=== PATIENT | male | born 1930 | race Caucasian/White ===

== ENCOUNTER → 2016-08-14 | Outpatient (CLI) | payer BC ==
[~2016-08-14] VITALS: Ht 177.8 cm; Wt 116.1 kg
[~2016-08-14] MED LIST: ASPI81TA21 PO; CARV12.52 PO; DABI150C PO; ERGO500037 PO; FURO40TA3 PO; IRBE-37 PO; LEVO1TAB50 PO; METO-217 PO; METO1TAB66 PO; TAMS0.4C59 PO; TRAM-10 PO
[2016-08-14 10:53] VITALS: BP 103/64; PULSE 80; Ht 177.8 cm; Wt 116.1 kg
== END | disposition home or self-care (01) ==
LOC: C.NEUR 10:40
PROVIDERS: ATTEND Internal Medicine Pulmonary Disease
DX: G47.31 Primary central sleep apnea (principal); G47.00 Insomnia, unspecified; G47.33 Obstructive sleep apnea (adult) (pediatric)

== ENCOUNTER → 2017-01-12 | Outpatient (CLI) | payer BC ==
[~2017-01-12] VITALS: Ht 180.3 cm; Wt 114.4 kg
[~2017-01-12] MED LIST changes: +METO-452 PO; -METO1TAB66 PO
[2017-01-12 16:41] VITALS: BP 110/73; PULSE 94; Ht 180.3 cm; Wt 114.4 kg
== END | disposition home or self-care (01) ==
LOC: C.NEUR 15:21
PROVIDERS: ATTEND Internal Medicine Pulmonary Disease
DX: G47.33 Obstructive sleep apnea (adult) (pediatric) (principal); G47.00 Insomnia, unspecified; G47.31 Primary central sleep apnea

== ENCOUNTER → 2017-02-16 | Outpatient (CLI) | payer BC ==
[~2017-02-16] MED LIST changes: -METO-452 PO; +METO1TAB66 PO
[2017-02-16 11:29] LABS: ALT/SGPT 23 U/L (12-78); AST/SGOT 18 U/L (15-37); BLOOD UREA NITROGEN 23 mg/dl (7-18); BUN/CREATININE RATIO 16.1 (10-20); CALCIUM 9.1 mg/dl (8.5-10.1); CARBON DIOXIDE 25 mmol/L (21-32); CHLORIDE 108 mmol/L (98-107); GLUCOSE 90 mg/dl (70-99); POTASSIUM 4.6 mmol/L (3.5-5.1); SODIUM 140 mmol/L (136-145)
[2017-02-16 11:40] LABS: ALB/GLOB RATIO 1.1 (0.9-2); ALKALINE PHOSPHATASE 55 U/L (45-117); CHOLESTEROL 127 mg/dl (0-200); CHOLESTEROL/HDL RATIO 4.2; HDL CHOLESTEROL 30 mg/dl; LDL CHOLESTEROL CALCULATED 79 mg/dl; TRIGLYCERIDES 91 mg/dl (0-150); VERY LOW DENSITY LIPOPROT CALC 18 mg/dl
== END | disposition home or self-care (01) ==
LOC: C.LABFOXMH 09:26
PROVIDERS: ATTEND Internal Medicine
DX: E78.00 Pure hypercholesterolemia, unspecified (principal); E03.9 Hypothyroidism, unspecified

== ENCOUNTER → 2017-06-21 | Outpatient (CLI) | payer BC ==
[~2017-06-21] MED LIST changes: +METO-452 PO; -METO1TAB66 PO
== END | disposition home or self-care (01) ==
LOC: C.LABFOXMH 08:18
PROVIDERS: ATTEND Internal Medicine
DX: I50.9 Heart failure, unspecified (principal)

== ENCOUNTER → 2017-06-22 | Outpatient (CLI) | payer BC ==
[2017-06-22 09:38] LABS: ALT/SGPT 23 U/L (12-78); AST/SGOT 19 U/L (15-37); BLOOD UREA NITROGEN 19 mg/dl (7-18); BUN/CREATININE RATIO 14.4 (10-20); CALCIUM 8.9 mg/dl (8.5-10.1); CARBON DIOXIDE 26 mmol/L (21-32); CHLORIDE 106 mmol/L (98-107); CREATININE 1.35 mg/dl (0.60-1.40); GLUCOSE 95 mg/dl (70-99); POTASSIUM 4.4 mmol/L (3.5-5.1); SODIUM 139 mmol/L (136-145)
[2017-06-22 09:40] LABS: ALB/GLOB RATIO 1.1 (0.9-2); ALKALINE PHOSPHATASE 55 U/L (45-117)
== END | disposition home or self-care (01) ==
LOC: C.LABFOXMH 09:04
PROVIDERS: ATTEND Internal Medicine Hospice and Palliative Medicine
DX: I50.9 Heart failure, unspecified (principal)

== ENCOUNTER → 2018-03-07 | Outpatient (CLI) | payer BC ==
[~2018-03-07] MED LIST changes: +ASPI-319 PO; -ASPI81TA21 PO
[2018-03-07 10:29] LABS: ALBUMIN 3.3 gm/dl (3.4-5.0); ALKALINE PHOSPHATASE 56 U/L (45-117); ALT/SGPT 23 U/L (12-78); AST/SGOT 20 U/L (15-37); BLOOD UREA NITROGEN 20 mg/dl (7-18); CALCIUM 8.5 mg/dl (8.5-10.1); CARBON DIOXIDE 25 mmol/L (21-32); CHOLESTEROL 104 mg/dl (0-200); CREATININE 1.28 mg/dl (0.60-1.40); GLUCOSE 96 mg/dl (70-99); LDL CHOLESTEROL CALCULATED 59 mg/dl; POTASSIUM 4.6 mmol/L (3.5-5.1); SODIUM 139 mmol/L (136-145); TOTAL PROTEIN 6.5 gm/dl (6.4-8.2)
== END ==
LOC: C.LABFOXMH 09:49
PROVIDERS: ATTEND Internal Medicine
DX: E78.00 Pure hypercholesterolemia, unspecified (principal); E03.9 Hypothyroidism, unspecified

== ENCOUNTER 2018-08-25 20:02 | Inpatient (IN) ==
[2018-08-25] MEDS ORDERED: SODIUM CHLORIDE 0.9% 500 ML IV SCH (20:45)
[2018-08-25 20:52] LABS: Hematocrit (blood only) 40.3 % (42-52); Hemoglobin 13.4 g/dL (14.0-18.0); Mean Corpuscular Hgb Conc 33.3 g/dL (32-36); Mean Platelet Volume 9.9 fL (7.4-10.4); Platelet Count 133 K/uL (130-400); RDW Coefficient of Variation 14.5 % (11.5-14.5); RDW Standard Deviation 48.3 fL (36.4-46.3); Red Blood Count 4.43 M/uL (4.7-6.1); White Blood Count 9.34 K/uL (4.8-10.8)
[2018-08-25 20:59] LABS: Alanine Aminotransferase 18 U/L (12-78); Albumin Level 3.4 gm/dl (3.4-5.0); Aspartate Aminotransferase 20 U/L (15-37); BUN Creatinine Ratio 16.2 (10-20); Blood Urea Nitrogen 21 mg/dl (7-18); Calcium 8.4 mg/dl (8.5-10.1); Carbon Dioxide 22 mmol/L (21-32); Chloride 100 mmol/L (98-107); Creatinine Clr Calc Pharmacy 54.8 ml/min; Est GFR (African American) 58.9; Est GFR (Non-African American) 50.8; Glucose 117 mg/dl (70-99); Potassium 4.3 mmol/L (3.5-5.1); Sodium 130 mmol/L (136-145)
[2018-08-25 21:01] LABS: INR 1.2 (0.9-1.1); Partial Thromboplastin Ratio 1.4; Partial Thromboplastin Time 35.5 Seconds (21.0-31.0); Prothrombin Time 12.2 Seconds (9.0-12.0)
[2018-08-25 21:10] LABS: Albumin Globulin Ratio 0.9 (0.9-2); Alkaline Phosphatase 70 U/L (45-117); Bilirubin,Total 0.9 mg/dl (0.2-1); Globulin 3.7 gm/dl (2.5-4.0); T4 Free Thyroxine 1.34 ng/dl (0.8-1.6); Total Protein 7.1 gm/dl (6.4-8.2); Troponin I < 0.015 ng/ml (0-0.045)
--- NOTE | 2018-08-25 21:13 | Emergency Department Note ---
Entered by Radha Morales acting as a scribe for Jorge Jade MD History of Present Illness General Chief complaint: Weakness Time Seen by Provider: 08/25/18 20:31 Source: patient Mode of arrival: EMS Limitations: no limitations History of Present Illness Provider complaint: Weakness Onset (ago): hour(s) ("couple hours ago beginning today") Location: lower extremity, left and right Radiation: non-radiation Severity: moderate Pain Consistency: + intermittent Maximum Pain Intensity: 0 Exacerbated By: + movement Associated symptoms: + other (dehydration, sweats) Patient is an 88 year old male presenting to the ED via EMS with weakness beginning today. Patient states he began to feel dizzy and lightheaded after going on a walk to visit friends within [facility]. He notes he noticed weakness in both legs and had trouble standing and holding himself up. Nurses note shares that patient did have two falls after onset began--no LOC or injury. Patient shares he did have associated sweats during his weakness episodes. Patient denies any CP, SOB, fever, nausea, vomiting, diarrhea, pain with urination, abd pain or any other complaints. He shares he did have a recent cough, and did need to use a CPAP machine. Patient notes he has a history of cataracts to which one pupil is larger than the other, and a hx of Afib. Home Medications Home Medications Medication Instructions Recorded Confirmed Type irbesartan 150 mg PO DAILY 04/29/18 08/25/18 History levothyroxine [Synthroid] 75 mcg PO DAILY 04/29/18 08/25/18 History metoprolol succinate [Toprol XL] 25 mg PO DAILY 04/29/18 08/25/18 History rivaroxaban [Xarelto] 15 mg PO DAILY 04/29/18 08/25/18 History rosuvastatin 10 mg PO DAILY 04/29/18 08/25/18 History tamsulosin 0.4 mg PO DAILY 04/29/18 08/25/18 History zolpidem 10 mg PO HS 04/29/18 08/25/18 History aspirin 81 mg PO DAILY 08/25/18 08/25/18 History Allergies Allergy/AdvReac Type Severity Reaction Status Date / Time cashew nut Allergy Unknown Verified 08/25/18 20:52 Past Med/Surg History Medical History 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, initial encounter Obstructive sleep apnea Cardiomyopathy Anticoagulant long-term use Chronic a-fib CAD (coronary artery disease) Hypertension (Chronic) Hypercholesterolemia (Chronic) Heart disease (Chronic) Diverticulitis (Chronic) Surgical History History of arthroplasty of left knee History of arthroplasty of right knee History of left hip replacement History of right hip replacement Social History Current Living Situation: [facility] current occupational status: retired Feels Safe at Home: Yes Smoking Status: Never smoker Preferred Language: [place]agu[place] Review of Systems See HPI for pertinent positives & negatives. and A total of 10 systems reviewed and were otherwise negative Physical Exam Vital Signs Vital Signs - 24 hr 08/25/18 20:19 08/25/18 20:25 08/25/18 21:06 Temperature 36.8 C Temperature Source Oral Sepsis Recent Fever Within 48 Hours No Sepsis Action Taken by Nursing No Action Required Pulse Rate 108 H Pulse Rate [Right Finger] 104 H Pulse Rhythm Irregular Pulse Rhythm [Right Finger] Irregular Pulse Strength Normal Pulse Strength [Right Finger] Normal Respiratory Rate 22 20 Respiratory Effort / Characteristics Spontaneous Labored Non-Labored Spontaneous Respiratory Depth Normal Normal Respiratory Pattern Regular Regular Blood Pressure 112/62 Blood Pressure [Right Arm] 107/55 L Blood Pressure Mean 78 Blood Pressure Mean [Right Arm] 72 Pulse Oximetry 95 95 97 Oxygen Delivery Method Room Air Nasal Cannula Nasal Cannula Oxygen Flow Rate 2 2 08/25/18 21:59 Temperature Temperature Source Sepsis Recent Fever Within 48 Hours Sepsis Action Taken by Nursing Pulse Rate Pulse Rate [Right Finger] 99 H Pulse Rhythm Pulse Rhythm [Right Finger] Irregular Pulse Strength Pulse Strength [Right Finger] Normal Respiratory Rate 20 Respiratory Effort / Characteristics Non-Labored Spontaneous Respiratory Depth Normal Respiratory Pattern Regular Blood Pressure Blood Pressure [Right Arm] 132/82 Blood Pressure Mean Blood Pressure Mean [Right Arm] 98 Pulse Oximetry 98 Oxygen Delivery Method Nasal Cannula Oxygen Flow Rate 2 GENERAL: Patient is in no acute distress. HEENT: No acute trauma, normocephalic atraumatic, mucous membranes moist, no nasal congestion, no scleral icterus. Right pupil larger than left (apparently chronic) NECK: No stridor, no adenopathy, no meningismus, trachea is midline. LUNGS: Clear to auscultation bilaterally, no wheeze, no rhonchi, breath sounds equal. HEART: tachycardic, irregular rhythm, no obvious murmurs. ABDOMEN: Soft, nontender, bowel sounds positive, no hernias, no peritonitis. EXTREMITIES: No cyanosis, full range of motion of all the joints without pain or difficulty, no signs for acute trauma. Mild bilateral pedal edema NEUROLOGIC: Oriented x 3, no acute motor or sensory deficits, no focal weakness. No cerebellar dysfunction, no pronator drift, no speech slur. SKIN: No rash, no jaundice, mild diaphoresis. Course 2031: Past medical records reviewed. The patient was evaluated in room C10, and a complete history and physical examination were performed. 2151: Updated by nurse that patients ambulation test went poorly. Plan for admission. 2203: Discussed case with Dr. Celestin, who accepts patient for admission. Administered Medications Metoprolol Tartrate (Lopressor) 2.5 mg IV Q5M PRN PRN Reason: Tachycardia Stop: 09/24/18 21:51 Last Admin: 08/25/18 21:56 Dose: 2.5 mg Discontinued Medications Sodium Chloride (Nss) 500 mls @ 999 mls/hr IV .Q31M JONNY Stop: 08/25/18 21:15 Last Infusion: 08/25/18 21:38 Dose: 0 mls/hr Admin: 08/25/18 21:05 Dose: 999 mls/hr Sodium Chloride (Nss) 500 mls @ 999 mls/hr IV .Q31M STA Stop: 08/25/18 21:45 Last Infusion: 08/25/18 21:58 Dose: 0 mls/hr Admin: 08/25/18 21:27 Dose: 999 mls/hr Medical Decision Making Differential Diagnosis Differential Diagnosis includes:dehydration, sepsis, electrolyte imbalance, anemia, dysrhythmia, rapid AFIB, UT, UTI, pneumonia, stroke Medical Records Attestation: I reviewed the patient's medical records. Home Medications Current Medication List: was personally reviewed by me Laboratory Data Attestation: I reviewed the patient's lab results. Result diagrams: 08/25/18 20:15 08/25/18 20:15 Lab Results 08/25/18 08/25/18 08/25/18 Range/Units 20:15 20:15 20:15 WBC 9.34 (4.8-10.8) K/uL RBC 4.43 L (4.7-6.1) M/uL Hgb 13.4 L (14.0-18.0) g/dL Hct 40.3 L (42-52) % MCV 91.0 (80-100) fL MCH 30.2 (25-34) pg MCHC 33.3 (32-36) g/dL RDW Std Deviation 48.3 H (36.4-46.3) fL RDW Coeff of Kasie 14.5 (11.5-14.5) % Plt Count 133 (130-400) K/uL MPV 9.9 (7.4-10.4) fL Immature Gran % (Auto) 0.2 % Neut % (Auto) 80.9 % Lymph % (Auto) 8.7 % [place] % (Auto) 9.0 % Eos % (Auto) 1.0 % Baso % (Auto) 0.2 % Immature Gran # (Auto) 0.02 (0.00-0.02) K/uL Neut # (Auto) 7.56 H (1.4-6.5) K/uL Lymph # (Auto) 0.81 L (1.2-3.4) K/uL [place] # (Auto) 0.84 H (0.11-0.59) K/uL Eos # (Auto) 0.09 (0-0.5) K/uL Baso # (Auto) 0.02 (0-0.2) K/uL PT 12.2 H (9.0-12.0) Seconds INR 1.2 H (0.9-1.1) APTT 35.5 H (21.0-31.0) Seconds PTT Ratio 1.4 Sodium 130 L (136-145) mmol/L Potassium 4.3 (3.5-5.1) mmol/L Chloride 100 (98-107) mmol/L Carbon Dioxide 22 (21-32) mmol/L Anion Gap 9.0 (3-11) BUN 21 H (7-18) mg/dl Creatinine 1.27 (0.6-1.4) mg/dl Est Cr Clr Drug Dosing 54.8 ml/min Est GFR ( Amer) 58.9 Est GFR (Non-Af Amer) 50.8 BUN/Creatinine Ratio 16.2 (10-20) Glucose 117 H (70-99) mg/dl Lactate (0.4-2.0) mmol/L Calcium 8.4 L (8.5-10.1) mg/dl Magnesium 2.0 (1.8-2.4) mg/dl Total Bilirubin 0.9 (0.2-1) mg/dl AST 20 (15-37) U/L ALT 18 (12-78) U/L Alkaline Phosphatase 70 (45-117) U/L Troponin I < 0.015 (0-0.045) ng/ml Total Protein 7.1 (6.4-8.2) gm/dl Albumin 3.4 (3.4-5.0) gm/dl Globulin 3.7 (2.5-4.0) gm/dl Albumin/Globulin Ratio 0.9 (0.9-2) TSH 2.530 (0.300-4.500) uIu/ml Free T4 1.34 (0.8-1.6) ng/dl Influenza Type A Ag (Neg) Influenza Type B Ag (Neg) 08/25/18 08/25/18 Range/Units 21:02 21:03 WBC (4.8-10.8) K/uL RBC (4.7-6.1) M/uL Hgb (14.0-18.0) g/dL Hct (42-52) % MCV (80-100) fL MCH (25-34) pg MCHC (32-36) g/dL RDW Std Deviation (36.4-46.3) fL RDW Coeff of Kasie (11.5-14.5) % Plt Count (130-400) K/uL MPV (7.4-10.4) fL Immature Gran % (Auto) % Neut % (Auto) % Lymph % (Auto) % [place] % (Auto) % Eos % (Auto) % Baso % (Auto) % Immature Gran # (Auto) (0.00-0.02) K/uL Neut # (Auto) (1.4-6.5) K/uL Lymph # (Auto) (1.2-3.4) K/uL [place] # (Auto) (0.11-0.59) K/uL Eos # (Auto) (0-0.5) K/uL Baso # (Auto) (0-0.2) K/uL PT (9.0-12.0) Seconds INR (0.9-1.1) APTT (21.0-31.0) Seconds PTT Ratio Sodium (136-145) mmol/L Potassium (3.5-5.1) mmol/L Chloride (98-107) mmol/L Carbon Dioxide (21-32) mmol/L Anion Gap (3-11) BUN (7-18) mg/dl Creatinine (0.6-1.4) mg/dl Est Cr Clr Drug Dosing ml/min Est GFR ( Amer) Est GFR (Non-Af Amer) BUN/Creatinine Ratio (10-20) Glucose (70-99) mg/dl Lactate 1.2 (0.4-2.0) mmol/L Calcium (8.5-10.1) mg/dl Magnesium (1.8-2.4) mg/dl Total Bilirubin (0.2-1) mg/dl AST (15-37) U/L ALT (12-78) U/L Alkaline Phosphatase (45-117) U/L Troponin I (0-0.045) ng/ml Total Protein (6.4-8.2) gm/dl Albumin (3.4-5.0) gm/dl Globulin (2.5-4.0) gm/dl Albumin/Globulin Ratio (0.9-2) TSH (0.300-4.500) uIu/ml Free T4 (0.8-1.6) ng/dl Influenza Type A Ag Neg for Influ A (Neg) Influenza Type B Ag Neg for Influ B (Neg) Imaging Data Radiologist's Impression: SINGLE VIEW CHEST CLINICAL HISTORY: Generalized weakness. Syncope. FINDINGS: An AP, portable, upright chest radiograph is compared to study dated 04/29/2018. The examination is degraded by portable technique and patient rotation. The heart is enlarged and there is atherosclerotic calcification of the thoracic aorta. There is prominence of the central pulmonary vessels. There are bibasilar airspace opacities. No large pleural effusion or pneumothorax is seen. The skeletal structures are osteopenic. The bony thorax is grossly intact. Degenerative change is present in the shoulders and thoracic spine. IMPRESSION: 1. Cardiomegaly with prominence of the central pulmonary vessels. Correlate clinically for evidence of mild congestive failure. 2. There are bibasilar airspace opacities which likely represent atelectasis. Correlate clinically for evidence of a superimposed infectious/inflammatory pneumonitis. Electronically signed by: Jorge Nelson M.D. 08/25/2018 9:28 PM ECG Data Attestation: I personally reviewed and interpreted this ECG as follows: Indication: weakness Rate (beats per minute): 110 Rhythm: atrial fibrillation Findings: + other (nonspecific ST change), + PVC and + RBBB; no ST elevation Comparison ECG Date: from (04/29/18) Change: no significant change Blood Pressure Blood Pressure Findings: Normal blood pressure MDM Narrative There is no leukocytosis or worrisome anemia. No concerning coagulopathy. Sodium is somewhat low at 130. No kidney failure. Lactic acid level is not elevated making sepsis less likely. EKG shows a rapid A. fib with a right bundle branch block, no acute ischemia. Cardiac enzyme testing x1 is not consistent with acute cardiac injury. There was no hepatitis. The patient appeared to be in a euthyroid state. Influenza testing was negative. Chest film showed cardiomegaly, no obvious pneumonia, no concerning CHF. Urinalysis result is pending. Blood cultures are pending. The patient received IV saline, 2/500 cc boluses were given. He received a small dose of IV Lopressor, 2.5 mg. The patient is still mildly tachycardic. He did attempt to stand and his legs felt weak. They were stronger than earlier but still weak. I do think the patient requires a hospital stay. He presents in a rapid A. fib. He has leg weakness and had 2 near syncopal spells where he could not stand. He was sweaty upon arrival. Further workup in the hospital is warranted. Further cardiac workup is warranted. His sodium needs replaced. Of note, the patient did not suffer any trauma with his episodes, he did not strike his head. He denies any chest pain. I did speak to the patient and case management. The on-call hospitalist was consulted. Impression & Plan Rapid atrial fibrillation, Dehydration, Hyponatremia, Weakness, Near syncope Discharge Plan Visit Data Chief Complaint: Weakness ED Provider: Jorge Jade Discharge Problem: Rapid atrial fibrillation, Dehydration, Hyponatremia, Weakness, Near syncope Forms Stand Alone Forms: My [facility] Prescriptions Prescriptions: No Action levothyroxine [Synthroid] 75 mcg tablet 75 mcg PO DAILY RF: 0 tamsulosin 0.4 mg capsule 0.4 mg PO DAILY RF: 0 metoprolol succinate [Toprol XL] 25 mg tablet extended release 24 hr 25 mg PO DAILY RF: 0 irbesartan 150 mg tablet 150 mg PO DAILY RF: 0 rosuvastatin 10 mg tablet 10 mg PO DAILY RF: 0 zolpidem 10 mg tablet 10 mg PO HS RF: 0 rivaroxaban [Xarelto] 15 mg tablet 15 mg PO DAILY RF: 0 aspirin 81 mg Tablet,Delayed Release (Dr/Ec) 81 mg PO DAILY RF: 0 The scribe's documentation has been prepared under my direction and personally reviewed by me in its entirety. I confirm that the note above accurately reflects all work, treatment, procedures, and medical decision making performed by me.
[2018-08-25] MEDS ORDERED: SODIUM CHLORIDE 0.9% 500 ML IV STA (21:15)
[2018-08-25 21:24] LABS: Basophils # (auto) 0.02 K/uL (0-0.2); Basophils % (auto) 0.2 %; Eosinophils # (auto) 0.09 K/uL (0-0.5); Immature Granulocytes # (auto) 0.02 K/uL (0.00-0.02); Immature Granulocytes % (auto) 0.2 %; Lymphocytes # (auto) 0.81 K/uL (1.2-3.4); Lymphocytes % (auto) 8.7 %; Monocytes # (auto) 0.84 K/uL (0.11-0.59); Neutrophils # (auto) 7.56 K/uL (1.4-6.5); Neutrophils % (auto) 80.9 %
--- NOTE | 2018-08-25 21:30 | XRay Report ---
SINGLE VIEW CHEST CLINICAL HISTORY: Generalized weakness. Syncope. FINDINGS: An AP, portable, upright chest radiograph is compared to study dated 04/29/2018. The examin ation is degraded by portable technique and patient rotation. The heart is enlarged and there is ath erosclerotic calcification of the thoracic aorta. There is prominence of the central pulmonary vessel s. There are bibasilar airspace opacities. No large pleural effusion or pneumothorax is seen. The ske letal structures are osteopenic. The bony thorax is grossly intact. Degenerative change is present in the shoulders and thoracic spine. IMPRESSION: 1. Cardiomegaly with prominence of the central pulmonary vessels. Correlate clinically for evidence o f mild congestive failure. 2. There are bibasilar airspace opacities which likely represent atelectasis. Correlate clinically fo r evidence of a superimposed infectious/inflammatory pneumonitis. Electronically signed by: Jorge Nelson M.D. 08/25/2018 9:28 PM
[2018-08-25] MEDS ORDERED: METOPROLOL TARTRATE 1 MG/ML VIAL IV PRN (21:52)
--- NOTE | 2018-08-26 00:14 | History & Physical Report ---
Date of Service August 26, 2018 Assessment & Plan (1) Rapid atrial fibrillation: 88-year-old male who presents to the emergency room after feeling weak in his legs and found to have A. fib with RVR. Patient has known A. fib and is on Xarelto. He has not skipped any doses of his medications. He states that for several days he has not felt well, started a new CPAP machine earlier this week and had resultant sinus congestion with drainage. He was seen by the PCP at [facility] for this, was not started on any medications or antibiotics. Says he began to feel increasingly more weak in his legs and does take tramadol as needed due to lower back lumbar stenosis and chronic pain. He admits to low p.o. fluid intake. Of note, he does deny fevers, chills, chest pain, dyspnea, abdominal pain, diarrhea or constipation, bloody stools or urine. Endorses trace leg edema which is stable for him. 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 Denies T/E/D. ED course: Up to 120s per report. Administered liter boluses, 2.5 mg Lopressor IV with good effect. Labs remarkable for hemoglobin 13.4, INR 1.2, sodium 130, potassium 4.3, BUN/creatinine 21/1.27 which is his baseline. Glucose 117. Lactate 1.2. Troponin normal. No transaminitis. Thyroid function normal. Chest x-ray unremarkable. KUB pending. 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 Rodriguez -In setting of nonspecific viral upper respiratory symptoms, poor p.o. fluids and hyponatremia consistent with dehydration -RVR responsive to beta-kristian and fluids -normally takes 40mg PO Lasix - CXR shows very mild congestion. Plan: -Monitor on med telemetry -Received 2 L boluses in the ED, will NOT continue maintenance fluids given CM. Restart lasix in AM. I/Os, weights. -Lopressor 5 mg IV every 4 as needed for tachycardia -if clinically not improving, could consider repeat echo Anemia, normocytic -Mild -Denies signs and symptoms of bleeding, on Xarelto -FOBT negative 08/26/18 here -Recommend recheck H&H 1 week from discharge Chronic back pain, spinal stenosis and weakness in the legs -Recommend continue his physical therapy at [facility] for strengthening -Continue home tramadol 50 mg as needed every 12 hours -PT eval and treat FEN/GI: Heart healthy diet, maintenance fluids normal saline at 125 mL/hr DVT ppx: On Xarelto CODE STATUS: Full code DISPO: Med telemetry Other ongoing medical problems: SAULO - CPAP here Hypertension-Continue home irbesartan 150 mg daily, Toprol 25 mg daily Hyperlipidemia-continue home Crestor 10 mg daily BPH-continue home Flomax 0.4 mg daily Insomnia-continue home Ambien 10 mg p.o. at bedtime Radha Birch MD Senior Property Manager (2) Dehydration: (3) Hyponatremia: (4) Weakness: (5) Near syncope: (6) Obstructive sleep apnea: (7) Anticoagulant long-term use: (8) Chronic a-fib: (9) CAD (coronary artery disease): (10) Hypertension: (11) Hypercholesterolemia: History of Present Illness Primary Care Provider: [facility] 88-year-old male who presents to the emergency room after feeling weak in his legs and found to have A. fib with RVR. Patient has known A. fib and is on Xarelto. He has not skipped any doses of his medications. He states that for several days he has not felt well, started a new CPAP machine earlier this week and had resultant sinus congestion with drainage. He was seen by the PCP at [facility] for this, was not started on any medications or antibiotics. Says he began to feel increasingly more weak in his legs and does take tramadol as needed due to lower back lumbar stenosis and chronic pain. He admits to low p.o. fluid intake. Of note, he does deny chest pain, dyspnea, abdominal pain, diarrhea or constipation, bloody stools or urine. Endorses trace leg edema which is stable for him. 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 Denies T/E/D. ED course: Admitted Administered liter boluses, 2.5 mg Lopressor IV with good effect. Labs remarkable for hemoglobin 13.4, INR 1.2, sodium 130, potassium 4.3 , BUN/creatinine 21/1.27 which is his baseline. Glucose 117. Lactate 1.2. Troponin normal. No transaminitis. Thyroid function normal. Chest x-ray unremarkable. KUB pending. Allergies Allergy/AdvReac Type Severity Reaction Status Date / Time cashew nut Allergy Unknown Verified 08/25/18 20:52 Home Medications Home Medications Medication Instructions Recorded Confirmed Type irbesartan 150 mg PO DAILY 04/29/18 08/25/18 History levothyroxine 75 mcg PO DAILY 04/29/18 08/25/18 History metoprolol succinate 25 mg PO DAILY 04/29/18 08/25/18 History rivaroxaban 15 mg PO DAILY 04/29/18 08/25/18 History rosuvastatin 10 mg PO DAILY 04/29/18 08/25/18 History tamsulosin 0.4 mg PO DAILY 04/29/18 08/25/18 History zolpidem 10 mg PO HS 04/29/18 08/25/18 History aspirin 81 mg PO DAILY 08/25/18 08/25/18 History Past Med/Surg History Medical History 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, initial encounter Obstructive sleep apnea Cardiomyopathy Anticoagulant long-term use Chronic a-fib CAD (coronary artery disease) Hypertension (Chronic) Hypercholesterolemia (Chronic) Heart disease (Chronic) Diverticulitis (Chronic) Surgical History History of arthroplasty of left knee History of arthroplasty of right knee History of left hip replacement History of right hip replacement Social History marital status: Current Living Situation: Spouse current occupational status: retired Other Information That Helps Us Care for You: No Feels Safe at Home: Yes Safety Concerns: Feels Safe At This Time Smoking Status: Never smoker Hx Alcohol Use: No Hx Substance Use: No Beliefs That Will Affect Care: None Preferred Language: Uzbek Physical Exam 2 Vital Signs (Past 24 Hours): Last Vital Signs Temp 36.8 C 08/25/18 20:19 Pulse 99 H 08/25/18 21:59 Resp 20 08/25/18 21:59 BP 132/82 08/25/18 21:59 Pulse Ox 98 08/25/18 21:59 Physical Exam: Vitals noted as above and within normal limits GENERAL: Awake, alert to person, place, and time, nontoxic-appearing, in no distress HENT: Normocephalic, atraumatic. Nasal cannula in place. Mucus membranes appear dry. EYES: Normal conjunctiva. Sclera non-icteric. EOMI. NECK: Supple. Full range of motion. No JVD RESPIRATORY: Clear to auscultation. Normal work of breathing. CARDIAC: irregularly irregular. Rate 105. Extremities warm and well perfused, 2+ radial pulses bilaterally; 2+ posterior tibialis pulses bilaterally. ABDOMEN: Soft, slightly distended. No tenderness to palpation in all four quadrants. No rebound or guarding. No masses. Bowel sounds are normal. LOWER EXTREMITIES: Inspection of calves reveal equal size bilaterally. They are non-tender. Trace edema. No discoloration. NEURO: No focal gross focal motor deficits noted. Sensation in tact. CN II-XII grossly in tact. SKIN: Rash not present. No jaundice noted. Significant lesions not present. PSYCH: Appropriate mood and affect. Cooperative. Exam as done by Radha Birch MD, Senior Property Manager. Results & Data Laboratory Results 08/26/18 08/25/18 08/25/18 Range/Units 00:30 21:03 21:02 WBC (4.8-10.8) K/uL RBC (4.7-6.1) M/uL Hgb (14.0-18.0) g/dL Hct (42-52) % MCV (80-100) fL MCH (25-34) pg MCHC (32-36) g/dL RDW Std Deviation (36.4-46.3) fL RDW Coeff of Kasie (11.5-14.5) % Plt Count (130-400) K/uL MPV (7.4-10.4) fL Immature Gran % (Auto) % Neut % (Auto) % Lymph % (Auto) % [place] % (Auto) % Eos % (Auto) % Baso % (Auto) % Immature Gran # (Auto) (0.00-0.02) K/uL Neut # (Auto) (1.4-6.5) K/uL Lymph # (Auto) (1.2-3.4) K/uL [place] # (Auto) (0.11-0.59) K/uL Eos # (Auto) (0-0.5) K/uL Baso # (Auto) (0-0.2) K/uL PT (9.0-12.0) Seconds INR (0.9-1.1) APTT (21.0-31.0) Seconds PTT Ratio Sodium (136-145) mmol/L Potassium (3.5-5.1) mmol/L Chloride (98-107) mmol/L Carbon Dioxide (21-32) mmol/L Anion Gap (3-11) BUN (7-18) mg/dl Creatinine (0.6-1.4) mg/dl Est Cr Clr Drug Dosing ml/min Est GFR ( Amer) Est GFR (Non-Af Amer) BUN/Creatinine Ratio (10-20) Glucose (70-99) mg/dl Lactate 1.2 (0.4-2.0) mmol/L Calcium (8.5-10.1) mg/dl Magnesium (1.8-2.4) mg/dl Total Bilirubin (0.2-1) mg/dl AST (15-37) U/L ALT (12-78) U/L Alkaline Phosphatase (45-117) U/L Troponin I (0-0.045) ng/ml Total Protein (6.4-8.2) gm/dl Albumin (3.4-5.0) gm/dl Globulin (2.5-4.0) gm/dl Albumin/Globulin Ratio (0.9-2) TSH (0.300-4.500) uIu/ml Free T4 (0.8-1.6) ng/dl Urine Color Yellow Urine Appearance Clear (Clear) Urine pH 5.0 (4.5-7.5) Ur Specific [place] 1.018 (1.000-1.030) Urine Protein Negative (Negative) Urine Glucose (UA) Negative (Negative) Urine Ketones Negative (Negative) Urine Blood Negative (Negative) Urine Nitrite Negative (Negative) Urine Bilirubin Negative (Negative) Urine Urobilinogen Negative (Negative) Ur Leukocyte Esterase Negative (Negative) Influenza Type A Ag Neg for Influ A (Neg) Influenza Type B Ag Neg for Influ B (Neg) 08/25/18 08/25/18 08/25/18 Range/Units 20:15 20:15 20:15 WBC 9.34 (4.8-10.8) K/uL RBC 4.43 L (4.7-6.1) M/uL Hgb 13.4 L (14.0-18.0) g/dL Hct 40.3 L (42-52) % MCV 91.0 (80-100) fL MCH 30.2 (25-34) pg MCHC 33.3 (32-36) g/dL RDW Std Deviation 48.3 H (36.4-46.3) fL RDW Coeff of Kasie 14.5 (11.5-14.5) % Plt Count 133 (130-400) K/uL MPV 9.9 (7.4-10.4) fL Immature Gran % (Auto) 0.2 % Neut % (Auto) 80.9 % Lymph % (Auto) 8.7 % [place] % (Auto) 9.0 % Eos % (Auto) 1.0 % Baso % (Auto) 0.2 % Immature Gran # (Auto) 0.02 (0.00-0.02) K/uL Neut # (Auto) 7.56 H (1.4-6.5) K/uL Lymph # (Auto) 0.81 L (1.2-3.4) K/uL [place] # (Auto) 0.84 H (0.11-0.59) K/uL Eos # (Auto) 0.09 (0-0.5) K/uL Baso # (Auto) 0.02 (0-0.2) K/uL PT 12.2 H (9.0-12.0) Seconds INR 1.2 H (0.9-1.1) APTT 35.5 H (21.0-31.0) Seconds PTT Ratio 1.4 Sodium 130 L (136-145) mmol/L Potassium 4.3 (3.5-5.1) mmol/L Chloride 100 (98-107) mmol/L Carbon Dioxide 22 (21-32) mmol/L Anion Gap 9.0 (3-11) BUN 21 H (7-18) mg/dl Creatinine 1.27 (0.6-1.4) mg/dl Est Cr Clr Drug Dosing 54.8 ml/min Est GFR ( Amer) 58.9 Est GFR (Non-Af Amer) 50.8 BUN/Creatinine Ratio 16.2 (10-20) Glucose 117 H (70-99) mg/dl Lactate (0.4-2.0) mmol/L Calcium 8.4 L (8.5-10.1) mg/dl Magnesium 2.0 (1.8-2.4) mg/dl Total Bilirubin 0.9 (0.2-1) mg/dl AST 20 (15-37) U/L ALT 18 (12-78) U/L Alkaline Phosphatase 70 (45-117) U/L Troponin I < 0.015 (0-0.045) ng/ml Total Protein 7.1 (6.4-8.2) gm/dl Albumin 3.4 (3.4-5.0) gm/dl Globulin 3.7 (2.5-4.0) gm/dl Albumin/Globulin Ratio 0.9 (0.9-2) TSH 2.530 (0.300-4.500) uIu/ml Free T4 1.34 (0.8-1.6) ng/dl Urine Color Urine Appearance (Clear) Urine pH (4.5-7.5) Ur Specific [place] (1.000-1.030) Urine Protein (Negative) Urine Glucose (UA) (Negative) Urine Ketones (Negative) Urine Blood (Negative) Urine Nitrite (Negative) Urine Bilirubin (Negative) Urine Urobilinogen (Negative) Ur Leukocyte Esterase (Negative) Influenza Type A Ag (Neg) Influenza Type B Ag (Neg) Supervising Physician Co-Signing Physician Notes Attending addendum: I have physically seen this patient, have supervised the medical residents activities, and agree with the H&P unless as otherwise noted. Assessment and Plan: Atrial fibrillation RVR/dehydration/generalized weakness-- Admit to telemetry. Lopressor 5 mg IV q4h PRN HR > 110 s/p 2l in the ED. No further hydration tonight. Continue Xarelto, Toprol 25 mg daily and irbesartan. Condition likely brought on by underlying viral process. Treat symptomatically. Remainde of orders and notations as noted. Resident Activity Tracking Resident Involvement: Resident Care Provided Care Provided: [facility]
[2018-08-26 00:48] LABS: Appearance Urine Clear (Clear); Bilirubin Urine Negative (Negative); Color Urine Yellow; Glucose Urine UA Negative (Negative); Ketones Urine Negative (Negative); Leukocyte Esterase Urine Negative (Negative); Nitrite Urine Negative (Negative); Protein Urine Negative (Negative); Specific Gravity Urine 1.018 (1.000-1.030); Urobilinogen Urine Negative (Negative)
[2018-08-26] MEDS ORDERED: TRAMADOL HCL 50 MG TABLET PO PRN (01:48)
[2018-08-26] MEDS ORDERED: ALUMINUM/MAGNESIUM SUSP 30 ML UDC PO PRN (01:48)
[2018-08-26] MEDS ORDERED: SODIUM CHLORIDE 0.9% 1000ML 1,000 ML IV SCH (01:48)
[2018-08-26] MEDS ORDERED: METOPROLOL TARTRATE 1 MG/ML VIAL IV PRN (01:48)
[2018-08-26] MEDS ORDERED: ACETAMINOPHEN 325 MG TAB PO PRN (01:48)
[2018-08-26] MEDS ORDERED: POLYETHYLENE (MIRALAX) 17 GM PACK PO PRN (01:48)
[2018-08-26] MEDS ORDERED: MAGNESIUM HYDROXIDE SUSP 30 ML UDC PO PRN (01:48)
[2018-08-26] MEDS ORDERED: ZOLPIDEM TARTRATE 10 MG TAB PO ONE (02:36)
[2018-08-26] MEDS ORDERED: LEVOTHYROXINE SODIUM 75 MCG TABLET PO SCH (06:30)
--- NOTE | 2018-08-26 07:23 | XRay Report ---
XR KUB CLINICAL HISTORY: 88 years-old Male presenting with distention. TECHNIQUE: Single supine view of the abdomen was obtained. COMPARISON: None. FINDINGS: Mild gaseous distention of small and large bowel. Nonobstructive bowel gas pattern. No gross pneumope ritoneum. Image quality and bowel gas significantly limits evaluation for nephrolithiasis. Numerous pelvic phle boliths. Degenerative changes of the spine. Bilateral total hip arthroplasties. Lung bases clear. Cardiac silh ouette enlarged. Atherosclerosis of aortic arch. IMPRESSION: 1. Mild gaseous distention of small and large bowel. No evidence of bowel obstruction or gross free air allowing for image quality and supine technique. Electronically signed by: Juvenal Magallon M.D. 08/26/2018 7:21 AM
[2018-08-26 07:29] LABS: Basophils # (auto) 0.01 K/uL (0-0.2); Basophils % (auto) 0.1 %; Eosinophils # (auto) 0.05 K/uL (0-0.5); Eosinophils % (auto) 0.6 %; Hematocrit (blood only) 41.3 % (42-52); Hemoglobin 13.8 g/dL (14.0-18.0); Immature Granulocytes # (auto) 0.01 K/uL (0.00-0.02); Immature Granulocytes % (auto) 0.1 %; Lymphocytes # (auto) 0.85 K/uL (1.2-3.4); Mean Corpuscular Hgb Conc 33.4 g/dL (32-36); Mean Corpuscular Volume 91.4 fL (80-100); Mean Platelet Volume 10.2 fL (7.4-10.4); Monocytes # (auto) 0.82 K/uL (0.11-0.59); Monocytes % (auto) 10.6 %; Neutrophils # (auto) 6.01 K/uL (1.4-6.5); Neutrophils % (auto) 77.6 %; Platelet Count 129 K/uL (130-400); RDW Coefficient of Variation 14.7 % (11.5-14.5); RDW Standard Deviation 49.6 fL (36.4-46.3); Red Blood Count 4.52 M/uL (4.7-6.1); White Blood Count 7.75 K/uL (4.8-10.8)
[2018-08-26] MEDS ORDERED: TAMSULOSIN HCL 0.4 MG CAP PO SCH (09:00)
[2018-08-26] MEDS ORDERED: RIVAROXABAN 15 MG TAB PO SCH (09:00)
[2018-08-26] MEDS ORDERED: ASPIRIN 81 MG ECTAB PO SCH (09:00)
[2018-08-26] MEDS ORDERED: ROSUVASTATIN CALCIUM 10 MG TAB PO SCH (09:00)
[2018-08-26] MEDS ORDERED: IRBESARTAN 150 MG TAB PO SCH (09:00)
[2018-08-26] MEDS ORDERED: METOPROLOL SUCC 25MG EXT REL TAB PO SCH (09:00)
[2018-08-26] MEDS ORDERED: FUROSEMIDE 40 MG TAB PO SCH (09:00)
[2018-08-26] MEDS ORDERED: METOPROLOL SUCC 25MG EXT REL TAB PO ONE (13:43)
--- NOTE | 2018-08-26 16:15 | Discharge Summary ---
Date of Service August 26, 2018 Admission HPI Per Admitting Provider 88-year-old male who presents to the emergency room after feeling weak in his legs and found to have A. fib with RVR. Patient has known A. fib and is on Xarelto. He has not skipped any doses of his medications. He states that for several days he has not felt well, started a new CPAP machine earlier this week and had resultant sinus congestion with drainage. He was seen by the PCP at [facility] for this, was not started on any medications or antibiotics. Says he began to feel increasingly more weak in his legs and does take tramadol as needed due to lower back lumbar stenosis and chronic pain. He admits to low p.o. fluid intake. Of note, he does deny chest pain, dyspnea, abdominal pain, diarrhea or constipation, bloody stools or urine. Endorses trace leg edema which is stable for him. 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 Denies T/E/D. ED course: Admitted Administered liter boluses, 2.5 mg Lopressor IV with good effect. Labs remarkable for hemoglobin 13.4, INR 1.2, sodium 130, potassium 4.3 , BUN/creatinine 21/1.27 which is his baseline. Glucose 117. Lactate 1.2. Troponin normal. No transaminitis. Thyroid function normal. Chest x-ray unremarkable. KUB pending. Principal Diagnosis A.fib RVR Discharge Exam Constitutional WD/WN, vitals as above Respiratory normal respiratory effort, lungs clear to auscultation Cardiovascular Rate/Rhythm: + abnormal rhythm Heart Sounds: + murmur Extremities: no edema Gastrointestinal (Abdomen) normal bowel sounds, soft, nontender, no hepatosplenomegaly Musculoskeletal no cyanosis or clubbing, extremities motor strength 5/5 Skin no rashes, warm and dry Neurologic moves all extremities and awake Psychiatric A+Ox3, euthymic affect Discharge Data Allergies Allergy/AdvReac Type Severity Reaction Status Date / Time cashew nut Allergy Unknown Verified 08/25/18 20:52 Consultations 08/25/18 21:53 ED Decision to Admit Stat 08/26/18 01:48 Consult Case Management - Discharge Planning Routine Hospital Course (1) Rapid atrial fibrillation: AFIB with RVR, hyponatremia, weakness -[facility] sig for tachycardia-mediated cardiomyopathy (EF dinah from 25% in 2008 up to 50% 2010), as well as medically managed multivessel CAD which is borderline occlusive, followed by Dr. Rodriguez -In setting of nonspecific viral upper respiratory symptoms, poor p.o. fluids and hyponatremia consistent with dehydration -RVR responsive to beta-kristian and fluids - only required 2.5 mg IV metoprolol in the ED and then resumed home metoprolol dosing -normally takes 40mg PO Lasix - CXR shows very mild congestion. -Received 2 L boluses in the ED, will NOT continue maintenance fluids given CM. Restart home lasix on discharge Of note: I was very clear with the patient that my recommendation was that he stay another night at the hospital to further titrate his medications, repeat labwork, and set up subacute rehab. Patient had some unsteadiness during his physical therapy assessment and they felt he may be a candidate for inpatient subacute rehab. He verbalized his understanding but insisted on discharge and refused further inpatient care. He feels he can receive the care he needs at home at [facility]. Due to this unsteadiness, I was hesitant to send him out with increased metoprolol as he runs low normal blood pressure with his current regimen. I will send him with a script for prp tomorrow to watch his electrolytes. He should also undergo PT/OT with [facility]. He should see his mortar man next week. Case management did discuss the patient with [facility] will call to check in with him. Anemia, normocytic -Mild -Denies signs and symptoms of bleeding, on Xarelto -FOBT negative 08/26/18 here -Recommend recheck H&H 1 week from discharge Chronic back pain, spinal stenosis and weakness in the legs -Recommend continue his physical therapy at [facility] for strengthening -Continue home tramadol 50 mg as needed every 12 hours -PT eval and treat Other ongoing medical problems: SAULO - CPAP here Hypertension-Continue home irbesartan 150 mg daily, Toprol 25 mg daily Hyperlipidemia-continue home Crestor 10 mg daily BPH-continue home Flomax 0.4 mg daily Insomnia-continue home Ambien 10 mg p.o. at bedtime (2) Dehydration: (3) Hyponatremia: (4) Weakness: (5) Near syncope: (6) Obstructive sleep apnea: (7) Anticoagulant long-term use: (8) Chronic a-fib: (9) CAD (coronary artery disease): (10) Hypertension: (11) Hypercholesterolemia: Total Time Total Time Spent Total Time Spent (In Minutes): >30 minutes Total Time Includes: Examination of the Patient, Discharge Planning and Medication Reconciliation Discharge Plan Discharge Items Patient Disposition: Home - Home Health Services Reason For Visit: AFIB WITH RVR Discharge Diagnosis: Afib with RVR Discharge Goals: Decrease discomfort and Improve disease control Activity: Resume your previous activity Activity Comment: gradually as tolerated Non-emergency contact: Primary Care Provider Call non-emergency contact if: you have any medication questions and your symptoms worsen Diet: Heart Healthy Other Ambulatory Orders: Basic Metabolic Panel (Routine) Timeframe: 1 Day Location: Determined by Patient Ordered By: Mine Wong Add Provider Instructions: Please follow up with Dr. Vaughan next week as well as your mortar man. As we discussed, due to your low normal blood pressure and unsteadiness on your feet I was a bit hesitant to increase your metoprolol. Please ask for his recommendation concerning this medication Del should provide you with PT/OT evaluation and treatment Please have your renal function blood work drawn tomorrow. Results will go to Dr. Vaughan Prescriptions: Continue levothyroxine 75 mcg tablet 75 mcg PO DAILY RF: 0 tamsulosin 0.4 mg capsule 0.4 mg PO DAILY RF: 0 metoprolol succinate 25 mg tablet extended release 24 hr 25 mg PO DAILY RF: 0 irbesartan 150 mg tablet 150 mg PO DAILY RF: 0 rosuvastatin 10 mg tablet 10 mg PO DAILY RF: 0 zolpidem 10 mg tablet 10 mg PO HS RF: 0 rivaroxaban 15 mg tablet 15 mg PO DAILY RF: 0 aspirin 81 mg Tablet,Delayed Release (Dr/Ec) 81 mg PO DAILY RF: 0 Stand-Alone Forms: [facility] Discharge Orders: Discharge Order (Routine); Ordered 08/26/18 Ordered By: Mine Wong Admission Data Admit Date/Time: 08/26/18 00:11 Attending Provider: Meet Boss Admit Provider: Radha Birch Primary Care Provider: Del Choe Other Providers: Raimundo Celestin Service: Telemetry Medical
[2018-08-26] MEDS ORDERED: ZOLPIDEM TARTRATE 10 MG TAB PO SCH (21:00)
[2018-08-27] MEDS ORDERED: METOPROLOL SUCC 25MG EXT REL TAB PO SCH (09:00)
== END 2018-08-26 16:44 | disposition home or self-care (01) | DRG 309 ==
LOC: ED 20:02 → 2W 08-26 00:11 → SUATTDRO 08-26 00:11 → 2W 08-26 01:22

== ENCOUNTER 2021-08-06 21:28 | Observation (INO) ==
[2021-08-06] MEDS ORDERED: METOPROLOL TARTRATE 1 MG/ML VIAL IV STA ×2 (22:04→22:47)
[2021-08-06 22:25] LABS: Basophils # (auto) 0.02 K/uL (0-0.2); Basophils % (auto) 0.1 %; Eosinophils # (auto) 0.02 K/uL (0-0.5); Eosinophils % (auto) 0.1 %; Hematocrit (blood only) 39.8 % (42-52); Hemoglobin 12.9 g/dL (14.0-18.0); Immature Granulocytes # (auto) 0.04 K/uL (0.00-0.02); Immature Granulocytes % (auto) 0.3 %; Mean Corpuscular Hemoglobin 31.9 pg (25-34); Mean Corpuscular Hgb Conc 32.4 g/dL (32-36); Mean Corpuscular Volume 98.5 fL (80-100); Mean Platelet Volume 10.2 fL (7.4-10.4); Monocytes % (auto) 7.8 %; Neutrophils # (auto) 12.17 K/uL (1.4-6.5); Neutrophils % (auto) 86.7 %; Platelet Count 177 K/uL (130-400); RDW Coefficient of Variation 15.9 % (11.5-14.5); RDW Standard Deviation 58.1 fL (36.4-46.3); Red Blood Count 4.04 M/uL (4.7-6.1); White Blood Count 14.05 K/uL (4.8-10.8)
[2021-08-06 22:38] LABS: Troponin I 0.04 ng/ml (0-0.04)
--- NOTE | 2021-08-06 22:40 | CT Scan Report ---
CT head/brain wo con CLINICAL HISTORY: Head injury. Patient on ASA/eliquis COMPARISON STUDY: 08/31/2018 CT DOSE: 1759.86 mGy.cm TECHNIQUE: Standard CT of the Brain was performed without IV contrast. A dose lowering technique was utilized adhering to the principles of ALARA. FINDINGS: Extraaxial space: There is no evidence for subdural hematoma. There are no extra-axial fluid collecti ons. Ventricles and cisterns: The ventricles are mildly dilated bilaterally. There is no evidence for mid line shift or mass effect. Parenchyma: There is no subarachnoid or intraparenchymal hemorrhage. There is no evidence for an acu te infarct or cerebral edema. There is mild cerebral cortical atrophy and decreased attenuation in th e periventricular white matter representing remote small vessel disease. There are no gross mass lesi ons. Osseous structures: There is no evidence for an acute fracture. There is extensive mucosal thickening present involving the frontal sinuses bilaterally, the ethmoid air cells bilaterally and involving t he maxillary antra bilaterally. The sphenoid sinuses are clear. The mastoid air cells are clear bilat erally. Soft tissues: There is no evidence for focal soft tissue swelling. IMPRESSION: No acute intracerebral pathology. Cerebral cortical atrophy and remote small vessel disea se. Marked bilateral sinusitis. ACT 112: Negative or not required by law. Electronically signed by: Charli Devries M.D. 08/06/2021 10:38 PM
[2021-08-06 22:43] LABS: Albumin Globulin Ratio 1.2 (0.9-2); BUN Creatinine Ratio 25.5 (10-20); Bilirubin,Total 0.8 mg/dl (0.2-1.0); Creatinine Clr Calc Pharmacy 47.1 ml/min; Est GFR (African American) 50.8 ml/min; Est GFR (Non-African American) 43.9 ml/min; Globulin 3.3 gm/dl (2.5-4.0); Magnesium 1.9 mg/dl (1.7-2.4); Potassium 4.7 mmol/L (3.5-5.1); Total Protein 7.3 gm/dl (6.0-8.3)
--- NOTE | 2021-08-06 22:44 | CT Scan Report ---
CT cervical spine wo con CLINICAL HISTORY: Head injury. Patient on ASA/eliquis COMPARISON STUDY: 08/31/2018 CT DOSE: TECHNIQUE: Standard CT of the Cervical Spine was performed without IV contrast. A dose lowering te chnique was utilized adhering to the principles of ALARA. FINDINGS: Bones: The bones are osteopenic. There is no evidence for an acute fracture or malalignment. The heig hts of the vertebral bodies are maintained. The vertebral bodies are in anatomic alignment. The odont oid is intact. Degenerative changes are seen at the atlantoaxial articulation. Disc spaces:There is marked disc space narrowing at C6-7 with endplate cirrhosis and osteophyte forma tion. Mild disc space narrowing is seen throughout the remainder of the cervical spine. Apophyseal joints:Extensive degenerative apophyseal joint disease is present bilaterally. Soft tissues:The prevertebral soft tissues are within normal limits. IMPRESSION: Osteopenia with no acute osseous pathology. Degenerative disc and degenerative joint dise ase ACT 112: Negative or not required by law. Electronically signed by: Charli Devries M.D. 08/06/2021 10:42 PM
--- NOTE | 2021-08-06 22:46 | CT Scan Report ---
CT facial bones wo con CLINICAL HISTORY: Head injury. Patient on ASA/eliquis COMPARISON STUDY: No previous studies for comparison. CT DOSE: TECHNIQUE: Standard CT of the Facial Bones and Orbits was performed without IV contrast. A dose lowe ring technique was utilized adhering to the principles of ALARA. FINDINGS: Bones: There are no displaced fractures identified. The orbital rims are intact bilaterally. The zygo matic arches are intact bilaterally. Nasal bones are intact. The nasal septum is in the midline. The mandible and maxilla are intact. Paranasal sinuses: There is extensive mucosal thickening involving the bilateral frontal, ethmoid and maxillary antra. The sphenoid sinuses are clear. Soft tissues: There is no focal soft tissue swelling. IMPRESSION: No acute abnormality. Marked bilateral sinusitis. ACT 112: Negative or not required by law. Electronically signed by: Charli Devries M.D. 08/06/2021 10:45 PM
--- NOTE | 2021-08-06 22:59 | XRay Report ---
XR chest 1V portable CLINICAL HISTORY: Difficulty breathing.. Evaluate for congestive heart failure. COMPARISON STUDY: 08/31/2018 TECHNIQUE: 1 view of the chest FINDINGS: Single frontal view of the chest demonstrates the heart to again be moderately enlarged. The lungs ar e clear of alveolar opacities. There is no evidence for pleural effusion. There is no evidence for va scular congestion. There is no acute osseous pathology. IMPRESSION: No acute cardiopulmonary disease. Cardiomegaly. ACT 112: Negative or not required by law. Electronically signed by: Charli Devries M.D. 08/06/2021 10:58 PM
[2021-08-06] MEDS ORDERED: AMOXICILLIN/CLAVULANATE 875 MG TAB PO ONE (23:17)
--- NOTE | 2021-08-06 23:56 | History & Physical Report ---
Date of Service August 06, 2021 Assessment & Plan (1) Fall: Plan: 89 y/o M w/ PMHx of HFrEF, permanent afib on Xarelto, RLS, hypothyroidism, HTN who presents from [facility] after a fall. Head CT w/o acute intracranial pathology. No LOC. No AMS. Neurovasc checks ordered. Re: ambulatory dysfunction: PT/OT evals. (2) Tachypnea: Plan: He is tachypneic to 30 and likely has hypervolemia. Also considered mild COPD flare. Afib w/ RVR may be contributing. Diuresing as per below. Rate control. Xopenex/ipratropium treatments. (3) Chronic systolic congestive heart failure: Plan: 04/17/21 echo: EF 25-30%. Moderate dilation of LV. Severe global hypokinesis of L ventricle. Significant weeping 3+ BLE. Some crackles on lung exam. Some hypervolemia likely contributing to tachypnea. 0.5kg gain compared to 06/2021. Hold home torsemide. Lasix IV 40 mg x1 provided; additional as needed. Cr 1.41, appears near baseline. Review of Cr trend suggests CKD. (4) Permanent atrial fibrillation: Plan: Currently in RVR, rate was 130 at admission, ->110 after 2 doses of IV lopressor. Continue home regimen of metoprolol succinate 50mg qam and 25mg qhs. Additional doses of IV lopressor as needed. Repeat ecg after rate is controlled. Initial ecg showing RVR w/ inferior lead q waves that may be rate-related. (5) Leukocytosis: Plan: New, mildly elevated to 14s. UA not suggestive of infectious etiology. CXR w/o focal consolidation. Given tobacco hx (former pipe smoker) and chronic mild cough, considered COPD vs mild acute bronchitis. Checking procalc. (6) Chronic sinusitis: Plan: D/C augmentin as it is not acute. CT face and head show bilateral sinusitis. Continue home daily Nasacort. (7) Anticoagulant long-term use: Plan: Continue home Xarelto (8) Moderate obstructive sleep apnea: Plan: qhs cpap (9) Hypothyroidism: Plan: Continue home levothyroxine (10) HTN (hypertension): Plan: Continue home irbesartan (11) Dyslipidemia: Plan: Continue home rosuvastatin 10 Plan: FEN: Low Na. No maintenance fluids. anticoag: Continue home Xarelto code: DNR/DNI dispo: med tele History of Present Illness Chief Complaint: fall Primary Care Provider: [facility] 89 y/o M w/ PMHx of HFrEF, permanent afib on Xarelto, RLS, hypothyroidism, HTN who presents from [facility] after a fall. He was using Rollator walker when it caught onto an object, causing patient to fall down on stomach and right scientologist area of head against the wheel. He could not get back up 2/2 chronic ambu latory dysfunction. Lives with in independent living. After falling, did not have headache or dizziness. Some discomfort at location of fall, but no significant pain. Denies LOC. Denies confusion afterwards. He is not fully adherent with his diuretic regimen as he only takes 1 dose of torsemide in the morning, instead of 3 doses in a day) because of inconvenience of frequent urination in the evening. Denies any respiratory discomfort; states at baseline. ED course: Lopressor IV 5 mg x2. Augmentin PO x1. Covid immunization status; Patient has had evolsox2+Booster. Allergies Allergy/AdvReac Type Severity Reaction Status Date / Time No Known Allergies Allergy Verified 08/06/21 21:47 Home Medications Medication Instructions Recorded Confirmed Type irbesartan 75 mg tablet 75 mg PO DAILY #90 tab 04/13/19 08/06/21 History levothyroxine 75 mcg tablet 75 mcg PO DAILY tab 04/13/19 08/06/21 History nitroglycerin 0.4 mg sublingual 0.4 mg SL Q5M PRN #1 tab 04/13/19 08/06/21 History tablet rivaroxaban 15 mg tablet 15 mg PO DAILY #90 tab 04/13/19 08/06/21 History rosuvastatin 10 mg tablet 10 mg PO DAILY #90 tab 04/13/19 08/06/21 History aspirin 81 mg tablet,delayed 81 mg PO DAILY tab 12/21/19 08/06/21 History release guar gum 1 tbs PO TIDM ea 12/21/19 08/06/21 History pramipexole 0.5 mg tablet 0.5 mg PO DAILY 12/21/19 08/06/21 History metoprolol succinate 25 mg 25 mg PO .COMPLEX #270 tab 01/10/21 08/06/21 Rx tablet,extended release 24 hr torsemide 20 mg tablet 40 mg PO DAILY tab 02/25/21 08/06/21 History Past Med/Surg History Medical History (Updated 08/07/21 @ 05:51 by Hunter Perez MD) Ambien accidental overdose Anticoagulant long-term use CAD (coronary artery disease) Cardiomyopathy Diverticulitis Hypercholesterolemia Hypertension Obstructive sleep apnea 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, initial e ncounter Prostate nodule Surgical History History of arthroplasty of left knee History of arthroplasty of right knee History of left hip replacement History of right hip replacement Family History Father Myocardial infarction Mother Parkinson disease Social History Smoking Status: Former smoker Second Hand Exposure: No; Hx Alcohol Use: Yes Alcohol type: beer and wine Hx Substance Use: No Preferred Language: Telugu Communication Ability: Effective Visual Impairment: No Limitations Panelbeater Required: No Beliefs That Will Affect Care: None marital status: Current Living Situation: Spouse and Personal Care Facility Current Living Situation Comment: [employer] current occupational status: retired How many Children do You have: 2 Feels Safe at Home: Yes Assistive Devices: Walker Review of Systems Review of Systems: All systems reviewed & are unremarkable except as noted in HPI & below Constitutional: Denies fever, chills, weight change Eyes: Denies blurry vision, vision changes ENT: Denies sore throat, sinus pain Cardiovascular: Denies chest pain Respiratory: Denies shortness of breath. + mild chronic cough. Gastrointestinal: Denies abdominal pain, nausea, vomiting, constipation, diarrh ea Genitourinary: Denies urinary symptoms including dysuria Musculoskeletal: Denies weakness, muscle aches/pain, joint aches/pain Neurological: Denies headache, numbness, tingling, focal weakness Physical Exam Physical Exam: General: A&Ox4. NAD. Cooperative. HEENT: Normocephalic. + chronic anisocoria, L pupil smaller, but reactive. No obvious JVD. Dry MM. Pulm: Slightly tachypneic. Mild inspiratory crackles at bases. No wheezing. No respiratory distress. Cardiac: RRR, -mrg. 3+ BLE, weeping at shins and has supericial ulcer at left li. No erythema or streaking. Abdominal: Nontender, nondistended, soft. Integ: Chronic venous stasis dermatitis Msk: Moving all extremities. Results & Data Results & Data ([facility]) Vital Signs (Past 12 Hours) Vital Signs afib rvr 110s-130s. RR upper 20s. 97 sat on room air. Temp Pulse Resp BP Pulse Ox 08/06/21 23:00 110 H 106/87 08/06/21 22:50 127 H 30 H 106/87 97 08/06/21 22:45 119 H 96 08/06/21 22:40 127 H 26 H 97 08/06/21 22:30 128 H 31 H 119/76 96 08/06/21 22:29 131 H 131/90 08/06/21 22:28 133 H 27 H 131/90 97 08/06/21 22:26 128 H 27 H 131/90 97 08/06/21 22:06 130 H 33 H 120/80 08/06/21 22:00 134 H 28 H 95 08/06/21 21:35 37.0 C 130 H 23 134/86 94 Laboratory Results WBC 14.05H. Hb 12.9 stable. Cr 1.41, near baseline. BUN 36. Mg 1.9. Liver panel wnl. BNP 190H. TSH wnl. covid neg. trop 0.04 08/06/21 21:45 08/06/21 21:45 Cardiac Enzymes 08/06/21 08/06/21 Range/Units 21:45 22:31 AST 19 (13-39) U/L Troponin I 0.04 (0-0.04) ng/ml B-Natriuretic Peptide 190 H (0-100) pg/ml Coagulation 08/06/21 Range/Units 22:31 B-Natriuretic Peptide 190 H (0-100) pg/ml CBC 08/06/21 Range/Units 21:45 WBC 14.05 H (4.8-10.8) K/uL RBC 4.04 L (4.7-6.1) M/uL Hgb 12.9 L (14.0-18.0) g/dL Hct 39.8 L (42-52) % Plt Count 177 (130-400) K/uL Neut # (Auto) 12.17 H (1.4-6.5) K/uL Lymph # (Auto) 0.70 L (1.2-3.4) K/uL [place] # (Auto) 1.10 H (0.11-0.59) K/uL Eos # (Auto) 0.02 (0-0.5) K/uL Baso # (Auto) 0.02 (0-0.2) K/uL Comprehensive Metabolic Panel 08/06/21 Range/Units 21:45 Sodium 136 (136-145) mmol/L Potassium 4.7 (3.5-5.1) mmol/L Chloride 106 (98-107) mmol/L Carbon Dioxide 21 (21-32) mmol/L BUN 36 H (6-23) mg/dl Creatinine 1.41 H (0.6-1.4) mg/dl Glucose 163 H (70-99(Fasting)) mg/dl Calcium 9.0 (8.5-10.1) mg/dl AST 19 (13-39) U/L ALT 13 (7-52) U/L Alkaline Phosphatase 52 (34-104) U/L Total Protein 7.3 (6.0-8.3) gm/dl Albumin 4.0 (3.4-5.0) gm/dl Intake and Output 08/06/21 08/06/21 08/07/21 14:59 22:59 06:59 Other: Weight 124.9 kg Weight Measurement Method Built in [facility] Patient Weight 08/07/21 06:59 Weight 124.9 kg Diagnostic Findings Cervical Spine CT 08/06/21 21:59 CT cervical spine wo con CLINICAL HISTORY: Head injury. Patient on ASA/eliquis COMPARISON STUDY: 08/31/2018 CT DOSE: TECHNIQUE: Standard CT of the Cervical Spine was performed without IV contrast. A dose lowering technique was utilized adhering to the principles of ALARA. FINDINGS: Bones: The bones are osteopenic. There is no evidence for an acute fracture or malalignment. The heights of the vertebral bodies are maintained. The vertebral bodies are in anatomic alignment. The odontoid is intact. Degenerative changes are seen at the atlantoaxial articulation. Disc spaces:There is marked disc space narrowing at C6-7 with endplate cirrhosis and osteophyte formation. Mild disc space narrowing is seen throughout the remainder of the cervical spine. Apophyseal joints:Extensive degenerative apophyseal joint disease is present bilaterally. Soft tissues:The prevertebral soft tissues are within normal limits. IMPRESSION: Osteopenia with no acute osseous pathology. Degenerative disc and degenerative joint disease ACT 112: Negative or not required by law. Electronically signed by: Charli Devries M.D. 08/06/2021 10:[address] 08/06/21 21:59 CT facial bones wo con CLINICAL HISTORY: Head injury. Patient on ASA/eliquis COMPARISON STUDY: No previous studies for comparison. CT DOSE: TECHNIQUE: Standard CT of the Facial Bones and Orbits was performed without IV contrast. A dose lowering technique was utilized adhering to the principles of ALARA. FINDINGS: Bones: There are no displaced fractures identified. The orbital rims are intact bilaterally. The zygomatic arches are intact bilaterally. Nasal bones are intact. The nasal septum is in the midline. The mandible and maxilla are intact. Paranasal sinuses: There is extensive mucosal thickening involving the bilateral frontal, ethmoid and maxillary antra. The sphenoid sinuses are clear. Soft tissues: There is no focal soft tissue swelling. IMPRESSION: No acute abnormality. Marked bilateral sinusitis. ACT 112: Negative or not required by law. Electronically signed by: Charli Devries M.D. 08/06/2021 10:[address] 08/06/21 21:59 CT head/brain wo con CLINICAL HISTORY: Head injury. Patient on ASA/eliquis COMPARISON STUDY: 08/31/2018 CT DOSE: 1759.86 mGy.cm TECHNIQUE: Standard CT of the Brain was performed without IV contrast. A dose lowering technique was utilized adhering to the principles of ALARA. FINDINGS: Extraaxial space: There is no evidence for subdural hematoma. There are no extra-axial fluid collections. Ventricles and cisterns: The ventricles are mildly dilated bilaterally. There is no evidence for midline shift or mass effect. Parenchyma: There is no subarachnoid or intraparenchymal hemorrhage. There is no evidence for an acute infarct or cerebral edema. There is mild cerebral cortical atrophy and decreased attenuation in the periventricular white matter representing remote small vessel disease. There are no gross mass lesions. Osseous structures: There is no evidence for an acute fracture. There is extensive mucosal thickening present involving the frontal sinuses bilaterally, the ethmoid air cells bilaterally and involving the maxillary antra bilaterally. The sphenoid sinuses are clear. The mastoid air cells are clear bilaterally. Soft tissues: There is no evidence for focal soft tissue swelling. IMPRESSION: No acute intracerebral pathology. Cerebral cortical atrophy and remote small vessel disease. Marked bilateral sinusitis. ACT 112: Negative or not required by law. Electronically signed by: Charli Devries M.D. 08/06/2021 10:38 PM Chest X-Ray 08/06/21 22:02 XR chest 1V portable CLINICAL HISTORY: Difficulty breathing.. Evaluate for congestive heart failure. COMPARISON STUDY: 08/31/2018 TECHNIQUE: 1 view of the chest FINDINGS: Single frontal view of the chest demonstrates the heart to again be moderately enlarged. The lungs are clear of alveolar opacities. There is no evidence for pleural effusion. There is no evidence for vascular congestion. There is no acute osseous pathology. IMPRESSION: No acute cardiopulmonary disease. Cardiomegaly. ACT 112: Negative or not required by law. Electronically signed by: Charli Devries M.D. 08/06/2021 10:58 PM Code Status & VTE Plan Code Status DNR/DNI VTE Prophylaxis Plan VTE Prophylaxis will be ordered: Yes Supervising Physician Co-Signing Physician Notes Attending addendum: I have physically seen this patient, have supervised the medical residents activities, and agree with the H&P unless as otherwise noted. Assessment and Plan: Acute on chronic HFrEF/atrial fibrillation/hypertension- The patient will be admitted to telemetry for serial cardiac enzymes, serial EKG's, cardiac rhythm monitoring. Give Lasix 40 mg IV this evening Improved RVR from 130 down to 1 2:10 doses of IV Lopressor Give evening doses of metoprolol succinate and continue outpatient dosing Lopressor 5 mg IV every 4 hours as needed heart rate greater than 110 Continue Xarelto and other home medications Keep potassium greater than equal to 4, magnesium greater than or equal to 2 Most recent echo 04/17/2021 with EF 25-30% Remaining orders and notations as noted Resident Activity Tracking Resident Involvement: Resident Care Provided Care Provided: Adult Hospital Medicine
--- NOTE | 2021-08-07 00:51 | Emergency Department Note ---
History of Present Illness General Chief complaint: Fall Time Seen by Provider: 08/06/21 21:53 History of Present Illness Maximum Pain Intensity: 4 This 89-year-old presents to the ER complaining of trip and fall with head injury who is on Eliquis and aspirin Location: Face Quality: Painful Severity: Moderate Duration: Tonight Timing: Patient tripped over his walker Context: Patient was sent in as he hit his head and he is on Eliquis Modifying factors: better with nothing; worse with nothing Patient states he is noncompliant with his CHF medications. He states he has also been having sinus problems. Patient denies chest pain, fever, chills, flulike illness, headache, neck pain, numbness, tingling. Patient states he has a healing leg ulcer that he follows the wound clinic with and is currently on Bactrim. Home Medications Medication Instructions Recorded Confirmed Type irbesartan 75 mg tablet 75 mg PO DAILY #90 tab 04/13/19 08/06/21 History levothyroxine 75 mcg tablet 75 mcg PO DAILY tab 04/13/19 08/06/21 History nitroglycerin 0.4 mg sublingual 0.4 mg SL Q5M PRN #1 tab 04/13/19 08/06/21 History tablet rivaroxaban 15 mg tablet 15 mg PO DAILY #90 tab 04/13/19 08/06/21 History rosuvastatin 10 mg tablet 10 mg PO DAILY #90 tab 04/13/19 08/06/21 History aspirin 81 mg tablet,delayed 81 mg PO DAILY tab 12/21/19 08/06/21 History release guar gum 1 tbs PO TIDM ea 12/21/19 08/06/21 History pramipexole 0.5 mg tablet 0.5 mg PO DAILY 12/21/19 08/06/21 History metoprolol succinate 25 mg 25 mg PO .COMPLEX #270 tab 01/10/21 08/06/21 Rx tablet,extended release 24 hr torsemide 20 mg tablet 40 mg PO DAILY tab 02/25/21 08/06/21 History Allergies Allergy/AdvReac Type Severity Reaction Status Date / Time No Known Allergies Allergy Verified 08/06/21 21:47 Past Med/Surg History Medical History Ambien accidental overdose Anticoagulant long-term use CAD (coronary artery disease) Cardiomyopathy Diverticulitis Hypercholesterolemia Hypertension Obstructive sleep apnea 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, initial encounter Prostate nodule Surgical History History of arthroplasty of left knee History of arthroplasty of right knee History of left hip replacement History of right hip replacement Family History Father Myocardial infarction Mother Parkinson disease Social History Smoking Status: Former smoker Hx Alcohol Use: No Hx Substance Use: No Preferred Language: Swedish Communication Ability: Effective Visual Impairment: No Limitations Extrusion Supervisor Required: No Beliefs That Will Affect Care: None marital status: Current Living Situation: Spouse current occupational status: retired How many Children do You have: 2 Feels Safe at Home: Yes Assistive Devices: Cane, CPAP and Walker Review of Systems A total of 10 systems reviewed and were otherwise negative Physical Exam Vital Signs Vital Signs - 24 hr 08/06/21 21:35 08/06/21 22:00 08/06/21 22:06 Temperature 37.0 C Temperature Source Oral Pulse Rate 130 H 134 H 130 H Pulse Rhythm Respiratory Rate 23 28 H 33 H Respiratory Effort / Characteristics SOB on Exertion Blood Pressure 134/86 120/80 Blood Pressure Mean 102 93 Pulse Oximetry 94 95 Oxygen Delivery Method Room Air Room Air Sepsis Recent Fever Within 48 Hours No Sepsis New/Unexplained Change in Mental Status No Sepsis Action Taken by Nursing No Action Required 08/06/21 22:26 08/06/21 22:28 08/06/21 22:29 Temperature Temperature Source Pulse Rate 128 H 133 H 131 H Pulse Rhythm Respiratory Rate 27 H 27 H Respiratory Effort / Characteristics Blood Pressure 131/90 131/90 131/90 Blood Pressure Mean 103 103 Pulse Oximetry 97 97 Oxygen Delivery Method Room Air Room Air Sepsis Recent Fever Within 48 Hours Sepsis New/Unexplained Change in Mental Status Sepsis Action Taken by Nursing 08/06/21 22:30 08/06/21 22:40 08/06/21 22:45 Temperature Temperature Source Pulse Rate 128 H 127 H 119 H Pulse Rhythm Irregular Respiratory Rate 31 H 26 H Respiratory Effort / Characteristics Blood Pressure 119/76 Blood Pressure Mean 90 Pulse Oximetry 96 97 96 Oxygen Delivery Method Room Air Room Air Room Air Sepsis Recent Fever Within 48 Hours Sepsis New/Unexplained Change in Mental Status Sepsis Action Taken by Nursing 08/06/21 22:50 08/06/21 23:00 Temperature Temperature Source Pulse Rate 127 H 110 H Pulse Rhythm Respiratory Rate 30 H Respiratory Effort / Characteristics Blood Pressure 106/87 106/87 Blood Pressure Mean 93 Pulse Oximetry 97 Oxygen Delivery Method Room Air Sepsis Recent Fever Within 48 Hours Sepsis New/Unexplained Change in Mental Status Sepsis Action Taken by Nursing VITALS: Vitals are noted on the nurse's note and reviewed by myself. Vital signs tachycardic. GENERAL: Pleasant male, in no acute distress, nondiaphoretic, well-developed well-nourished. SKIN: Right temporal abrasion, the rest of the skin was without rashes, or bruising. There is no tenting of the skin. Capillary reflex less than 2 seconds. HEAD: Normocephalic atraumatic. Face: Right orbit tender to palpation. EOMI intact. Patient can fully open and close jaw without difficulties. EARS: External auditory canals clear, tympanic membranes pearly ferguson without erythema or effusion bilaterally. EYES: Pupils equal round and reactive to light and accommodation. Conjunctivae without injection, sclerae without icterus. Extraocular movements intact. NOSE: Patent, turbinates without inflammation or discharge. Bilateral maxillary sinus tenderness. MOUTH: Mucous membranes moist. Pharynx without erythema or exudate. Uvula midline. Airway patent. Tongue does not deviate. NECK: Supple without nuchal rigidity. No lymphadenopathy. No thyromegaly. Cervical spine is nontender. No JVD. HEART: Tachycardic irregularly irregular. LUNGS: Mild diffuse bibasilar rales. No retractions or accessory muscle use. ABDOMEN: Positive bowel sounds x 4. Normal tympanic percussion. Soft, nontender, without masses or organomegaly. Davila sign negative. No guarding or rebound tenderness. No CVA tenderness MUSCULOSKELETAL: No muscle atrophy noted. Right lower leg with healing wound ulcer. NEURO: Patient was alert and oriented to person place and time. Normal sensation to light and sharp touch. No focal neurological deficits. Course Administered Medications Discontinued Medications Amoxicillin/Clavulanate Potassium (Amoxicillin/Clavulanate 875 Mg Tab) 1 tab PO NOW ONE Stop: 08/06/21 23:18 Last Admin: 08/06/21 23:45 Dose: 1 tab Documented by: [id number] Metoprolol Tartrate (Metoprolol Tartrate 1 Mg/Ml Vial) 5 mg IV NOW STA Stop: 08/06/21 22:05 Last Admin: 08/06/21 22:29 Dose: 5 mg Documented by: [id number] Metoprolol Tartrate (Metoprolol Tartrate 1 Mg/Ml Vial) 5 mg IV NOW STA Stop: 08/06/21 22:48 Last Admin: 08/06/21 23:00 Dose: 5 mg Documented by: [id number] Medical Decision Making Medical Records Attestation: I reviewed the patient's medical records. Home Medications Current Medication List: was personally reviewed by me Laboratory Data Attestation: I reviewed the patient's lab results. Result diagrams: 08/06/21 21:45 08/06/21 21:45 Lab Results 08/06/21 08/06/21 08/06/21 Range/Units 21:45 21:45 21:45 WBC 14.05 H (4.8-10.8) K/uL RBC 4.04 L (4.7-6.1) M/uL Hgb 12.9 L (14.0-18.0) g/dL Hct 39.8 L (42-52) % MCV 98.5 (80-100) fL MCH 31.9 (25-34) pg MCHC 32.4 (32-36) g/dL RDW Std Deviation 58.1 H (36.4-46.3) fL RDW Coeff of Kasie 15.9 H (11.5-14.5) % Plt Count 177 (130-400) K/uL MPV 10.2 (7.4-10.4) fL Immature Gran % (Auto) 0.3 % Neut % (Auto) 86.7 % Lymph % (Auto) 5.0 % Spencer % (Auto) 7.8 % Eos % (Auto) 0.1 % Baso % (Auto) 0.1 % Neut # (Auto) 12.17 H (1.4-6.5) K/uL Lymph # (Auto) 0.70 L (1.2-3.4) K/uL Spencer # (Auto) 1.10 H (0.11-0.59) K/uL Eos # (Auto) 0.02 (0-0.5) K/uL Baso # (Auto) 0.02 (0-0.2) K/uL Immature Gran # (Auto) 0.04 H (0.00-0.02) K/uL Sodium 136 (136-145) mmol/L Potassium 4.7 (3.5-5.1) mmol/L Chloride 106 (98-107) mmol/L Carbon Dioxide 21 (21-32) mmol/L Anion Gap 9 (3-11) BUN 36 H (6-23) mg/dl Creatinine 1.41 H (0.6-1.4) mg/dl Est Cr Clr Drug Dosing 47.1 ml/min Est GFR ( Amer) 50.8 ml/min Est GFR (Non-Af Amer) 43.9 ml/min BUN/Creatinine Ratio 25.5 H (10-20) Glucose 163 H (70-99(Fasting)) mg/dl Calcium 9.0 (8.5-10.1) mg/dl Magnesium 1.9 (1.7-2.4) mg/dl Total Bilirubin 0.8 (0.2-1.0) mg/dl AST 19 (13-39) U/L ALT 13 (7-52) U/L Alkaline Phosphatase 52 (34-104) U/L Troponin I 0.04 (0-0.04) ng/ml B-Natriuretic Peptide (0-100) pg/ml Total Protein 7.3 (6.0-8.3) gm/dl Albumin 4.0 (3.4-5.0) gm/dl Globulin 3.3 (2.5-4.0) gm/dl Albumin/Globulin Ratio 1.2 (0.9-2) TSH 2.308 (0.300-4.500) uIu/ml SARS-CoV-2, RNA, NAAT (NEGATIVE) 08/06/21 08/06/21 Range/Units 22:31 23:43 WBC (4.8-10.8) K/uL RBC (4.7-6.1) M/uL Hgb (14.0-18.0) g/dL Hct (42-52) % MCV (80-100) fL MCH (25-34) pg MCHC (32-36) g/dL RDW Std Deviation (36.4-46.3) fL RDW Coeff of Kasie (11.5-14.5) % Plt Count (130-400) K/uL MPV (7.4-10.4) fL Immature Gran % (Auto) % Neut % (Auto) % Lymph % (Auto) % Spencer % (Auto) % Eos % (Auto) % Baso % (Auto) % Neut # (Auto) (1.4-6.5) K/uL Lymph # (Auto) (1.2-3.4) K/uL Spencer # (Auto) (0.11-0.59) K/uL Eos # (Auto) (0-0.5) K/uL Baso # (Auto) (0-0.2) K/uL Immature Gran # (Auto) (0.00-0.02) K/uL Sodium (136-145) mmol/L Potassium (3.5-5.1) mmol/L Chloride (98-107) mmol/L Carbon Dioxide (21-32) mmol/L Anion Gap (3-11) BUN (6-23) mg/dl Creatinine (0.6-1.4) mg/dl Est Cr Clr Drug Dosing ml/min Est GFR ( Amer) ml/min Est GFR (Non-Af Amer) ml/min BUN/Creatinine Ratio (10-20) Glucose (70-99(Fasting)) mg/dl Calcium (8.5-10.1) mg/dl Magnesium (1.7-2.4) mg/dl Total Bilirubin (0.2-1.0) mg/dl AST (13-39) U/L ALT (7-52) U/L Alkaline Phosphatase (34-104) U/L Troponin I (0-0.04) ng/ml B-Natriuretic Peptide 190 H (0-100) pg/ml Total Protein (6.0-8.3) gm/dl Albumin (3.4-5.0) gm/dl Globulin (2.5-4.0) gm/dl Albumin/Globulin Ratio (0.9-2) TSH (0.300-4.500) uIu/ml SARS-CoV-2, RNA, NAAT NEGATIVE (NEGATIVE) Imaging Data Attestation: I personally reviewed and interpreted this imaging study as follows: Radiologist's Impression: Cervical Spine CT 08/06/21 21:59 CT cervical spine wo con CLINICAL HISTORY: Head injury. Patient on ASA/eliquis COMPARISON STUDY: 08/31/2018 CT DOSE: TECHNIQUE: Standard CT of the Cervical Spine was performed without IV contrast. A dose lowering technique was utilized adhering to the principles of ALARA. FINDINGS: Bones: The bones are osteopenic. There is no evidence for an acute fracture or malalignment. The heights of the vertebral bodies are maintained. The vertebral bodies are in anatomic alignment. The odontoid is intact. Degenerative changes are seen at the atlantoaxial articulation. Disc spaces:There is marked disc space narrowing at C6-7 with endplate cirrhosis and osteophyte formation. Mild disc space narrowing is seen throughout the remainder of the cervical spine. Apophyseal joints:Extensive degenerative apophyseal joint disease is present bilaterally. Soft tissues:The prevertebral soft tissues are within normal limits. IMPRESSION: Osteopenia with no acute osseous pathology. Degenerative disc and degenerative joint disease ACT 112: Negative or not required by law. Electronically signed by: Charli Devries M.D. 08/06/2021 10:[address] 08/06/21 21:59 CT facial bones wo con CLINICAL HISTORY: Head injury. Patient on ASA/eliquis COMPARISON STUDY: No previous studies for comparison. CT DOSE: TECHNIQUE: Standard CT of the Facial Bones and Orbits was performed without IV contrast. A dose lowering technique was utilized adhering to the principles of ALARA. FINDINGS: Bones: There are no displaced fractures identified. The orbital rims are intact bilaterally. The zygomatic arches are intact bilaterally. Nasal bones are i ntact. The nasal septum is in the midline. The mandible and maxilla are intact. Paranasal sinuses: There is extensive mucosal thickening involving the bilateral frontal, ethmoid and maxillary antra. The sphenoid sinuses are clear. Soft tissues: There is no focal soft tissue swelling. IMPRESSION: No acute abnormality. Marked bilateral sinusitis. ACT 112: Negative or not required by law. Electronically signed by: Charli Devries M.D. 08/06/2021 10:[address] 08/06/21 21:59 CT head/brain wo con CLINICAL HISTORY: Head injury. Patient on ASA/eliquis COMPARISON STUDY: 08/31/2018 CT DOSE: 1759.86 mGy.cm TECHNIQUE: Standard CT of the Brain was performed without IV contrast. A dose lowering technique was utilized adhering to the principles of ALARA. FINDINGS: Extraaxial space: There is no evidence for subdural hematoma. There are no extra-axial fluid collections. Ventricles and cisterns: The ventricles are mildly dilated bilaterally. There is no evidence for midline shift or mass effect. Parenchyma: There is no subarachnoid or intraparenchymal hemorrhage. There is no evidence for an acute infarct or cerebral edema. There is mild cerebral cortical atrophy and decreased attenuation in the periventricular white matter representing remote small vessel disease. There are no gross mass lesions. Osseous structures: There is no evidence for an acute fracture. There is extensi ve mucosal thickening present involving the frontal sinuses bilaterally, the ethmoid air cells bilaterally and involving the maxillary antra bilaterally. The sphenoid sinuses are clear. The mastoid air cells are clear bilaterally. Soft tissues: There is no evidence for focal soft tissue swelling. IMPRESSION: No acute intracerebral pathology. Cerebral cortical atrophy and remote small vessel disease. Marked bilateral sinusitis. ACT 112: Negative or not required by law. Electronically signed by: Charli Devries M.D. 08/06/2021 10:38 PM Chest X-Ray 08/06/21 22:02 XR chest 1V portable CLINICAL HISTORY: Difficulty breathing.. Evaluate for congestive heart shahzad lure. COMPARISON STUDY: 08/31/2018 TECHNIQUE: 1 view of the chest FINDINGS: Single frontal view of the chest demonstrates the heart to again be moderately enlarged. The lungs are clear of alveolar opacities. There is no evidence for pleural effusion. There is no evidence for vascular congestion. There is no acute osseous pathology. IMPRESSION: No acute cardiopulmonary disease. Cardiomegaly. ACT 112: Negative or not required by law. Electronically signed by: Charli Devries M.D. 08/06/2021 10:58 PM [facility] Narrative Prior records/ancillary studies reviewed. Triage Nursing notes reviewed. Additional history obtained from nursing. The patient's history was concerning for traumatic head injury Differential diagnosis: Etiologies such as concussion, contusion, fracture, subdural hematoma, epidural hematoma, intraparenchymal hemorrhage, as well as other traumatic pathologies were entertained. Physical examination findings: As above. ER treatment provided: Lopressor, Augmentin On reassessment the patient felt better. Diagnostics interpreted by me: ECG: Ordered for tachycardia EKG: Irregularly irregular with a right bundle branch block and a left axis deviation, rate of 124. Impression A. fib with a right bundle branch block with RVR interpreted by myself The labs revealed negative troponin Imaging studies: As above Head injury evaluation: GCS <15 two hours after injury: 0 Suspected open or depressed skull fracture: 0 Any sign of basilar skull fracture: hemotympanum, raccoon eyes (intraorbital bruising), Wilson sign (retroauricular bruising), or cerebrospinal fluid leak, king- or rhinorrhea: 0 Two or more episodes of vomitin Sixty-five years of age or older: + Amnesia for events occurring more than 30 minutes prior to impact: 0 Dangerous mechanism (pedestrian struck by motor vehicle, occupant ejected from motor vehicle, fall from =3 feet or =5 stairs): 0 Neurologic deficit: 0 Seizure: 0 Presence of bleeding diathesis or oral anticoagulant use: + Return visit for reassessment of a head injury: 0 Total:(any yes, then CT)+ Consultation: A consultation was placed with the hospitalist. The case was discussed and diagnostics were reviewed. The patient was evaluated in the ER for further treatment. It appears the patient has a head injury with A. fib RVR who is on Eliquis. Patient is given Lopressor. Heart rate improved. He was still working to breathe. He is noncompliant with his diuretics. Medicine was consulted for admission. He will be admitted. He was started on antibiotics for the sinus infection. By the evaluation outlined above emergent etiologies such as fracture, subdural hematoma, epidural hematoma, intraparenchymal hemorrhage, as well as others were deemed relatively unlikely. The pt informed about the findings as listed above. All questions were answered and pleased with the treatment. The chart was completed utilizing [employer] Speech voice recognition software. Grammatical errors, random word insertions, pronoun errors, and incomplete sentences are an occassional consequence of this system due to software limitations, ambient noise, and hardware issues. Any formal questions or concerns about the content, text, or information contained within the body of this dictation should be directly addressed to the physician assistant banquet manager for clarification. Impression & Plan Acute sinusitis, CHF (congestive heart failure), Fall, Head injury, Atrial fibrillation with RVR Discharge Plan Visit Data Chief Complaint: Fall ED Provider: Cheikh Duron ED Midlevel Provider: Nivia Schulte Discharge Problem: Acute sinusitis, CHF (congestive heart failure), Fall, Head injury, Atrial fibrillation with RVR Patient Disposition: Admitted As Inpatient Condition: Fair Forms Stand Alone Forms: [facility] Prescriptions Prescriptions: No Action metoprolol succinate 25 mg tablet extended release 24 hr 25 mg PO .COMPLEX Qty: 270 RF: 3 pramipexole 0.5 mg tablet 0.5 mg PO DAILY RF: 0 torsemide 20 mg tablet 40 mg PO DAILY RF: 0 nitroglycerin 0.4 mg tablet, sublingual 0.4 mg SL Q5M PRN (Reason: chest pain) Qty: 1 RF: 0 rosuvastatin 10 mg tablet 10 mg PO DAILY Qty: 90 RF: 0 irbesartan 75 mg tablet 75 mg PO DAILY Qty: 90 RF: 0 levothyroxine 75 mcg tablet 75 mcg PO DAILY RF: 0 Xarelto 15 mg tablet 15 mg PO DAILY Qty: 90 RF: 0 aspirin 81 mg tablet,delayed release (DR/EC) 81 mg PO DAILY RF: 0 guar gum Packet 1 tbs PO TIDM RF: 0 Referrals Referrals: Del Choe [Primary Care Provider] - Discharge Problem: Acute sinusitis Qualifiers: Sinusitis location: maxillary Recurrence: not specified as recurrent Qualified Code(s): J01.00 - Acute maxillary sinusitis, unspecified
[2021-08-07 02:39] LABS: Appearance Urine Clear (Clear); Bacteria Urine Automated Negative (Negative); Bilirubin Urine Negative (Negative); Blood Urine Trace (Negative); Cast Urine Automated 0 /lpf (0-5); Color Urine Yellow; Glucose Urine UA Negative (Negative); Ketones Urine Negative (Negative); Leukocyte Esterase Urine Negative (Negative); Nitrite Urine Negative (Negative); Protein Urine Trace (Negative); RBC Urine Automated 0-4 /hpf (0-4); Specific Gravity Urine 1.022 (1.000-1.030); Urobilinogen Urine Negative (Negative)
[2021-08-07] MEDS ORDERED: NITROGLYCERIN SL 0.4 MG/TAB TAB SL PRN (03:05)
[2021-08-07] MEDS: METOPROLOL SUCC 25MG EXT REL TAB PO SCH (04:39)
[2021-08-07] MEDS ORDERED: METOPROLOL TARTRATE 1 MG/ML VIAL IV STA (05:17)
[2021-08-07] MEDS ORDERED: MELATONIN 3 MG TAB PO STA (05:17)
[2021-08-07] MEDS ORDERED: FUROSEMIDE 40 MG/4 ML VIAL IV STA (05:17)
[2021-08-07 06:10] LABS: Basophils # (auto) 0.01 K/uL (0-0.2); Basophils % (auto) 0.1 %; Eosinophils # (auto) 0.01 K/uL (0-0.5); Eosinophils % (auto) 0.1 %; Hematocrit (blood only) 38.8 % (42-52); Hemoglobin 12.8 g/dL (14.0-18.0); Immature Granulocytes # (auto) 0.02 K/uL (0.00-0.02); Immature Granulocytes % (auto) 0.2 %; Lymphocytes # (auto) 0.88 K/uL (1.2-3.4); Lymphocytes % (auto) 7.7 %; Mean Corpuscular Hemoglobin 31.9 pg (25-34); Mean Corpuscular Volume 96.8 fL (80-100); Mean Platelet Volume 9.5 fL (7.4-10.4); Monocytes % (auto) 6.1 %; Neutrophils # (auto) 9.88 K/uL (1.4-6.5); Neutrophils % (auto) 85.8 %; Platelet Count 142 K/uL (130-400); RDW Coefficient of Variation 15.8 % (11.5-14.5); RDW Standard Deviation 56.3 fL (36.4-46.3); Red Blood Count 4.01 M/uL (4.7-6.1)
[2021-08-07] MEDS: LEVOTHYROXINE SODIUM 75 MCG TABLET PO SCH (06:35)
[2021-08-07] MEDS: TRIAMCINOLONE ACET NASAL SPRAY 10.8ML BTL NAE SCH (06:35)
[2021-08-07 06:50] LABS: Troponin I 0.04 ng/ml (0-0.04)
[2021-08-07 06:55] LABS: Albumin Globulin Ratio 1.2 (0.9-2); Albumin Level 3.8 gm/dl (3.4-5.0); BUN Creatinine Ratio 26.7 (10-20); Bilirubin,Total 0.9 mg/dl (0.2-1.0); Calcium 8.9 mg/dl (8.5-10.1); Creatinine Clr Calc Pharmacy 55.3 ml/min; Est GFR (African American) 61.8 ml/min; Est GFR (Non-African American) 53.3 ml/min; Globulin 3.2 gm/dl (2.5-4.0); Potassium 4.3 mmol/L (3.5-5.1)
[2021-08-07] MEDS ORDERED: XOPENEX/ATROVENT 0.63mg/0.5MG NEB COMBO NEB SCH (07:00)
[2021-08-07] MEDS: LEVALBUTEROL HCL 0.63 MG/3 ML NEB NEB SCH ×2 (07:14→09:45)
[2021-08-07] MEDS: IPRATROPIUM BROMIDE NEB SOLN 0.02% 2.5 ML VIAL INH SCH ×2 (07:14→09:45)
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
[2021-08-07] MEDS: PRAMIPEXOLE DIHYDROCHLO 0.5 MG TAB PO SCH (08:41)
[2021-08-07] MEDS: ROSUVASTATIN CALCIUM 10 MG TAB PO SCH (08:42)
[2021-08-07] MEDS: RIVAROXABAN 15 MG TAB PO SCH (08:42)
--- NOTE | 2021-08-07 08:51 | XRay Report ---
XR chest 1V portable CLINICAL HISTORY: Difficulty breathing. Evaluate for congestive heart failure.. COMPARISON STUDY: 08/06/2021 TECHNIQUE: 1 view of the chest FINDINGS: Single frontal view of the chest demonstrates the heart to again be enlarged. The lungs are clear of alveolar opacities. There is no evidence for pleural effusion. There is no evidence for vascular dusty estion. There is no acute osseous pathology. IMPRESSION: No acute cardiopulmonary disease. No significant interval change. ACT 112: Negative or not required by law. Electronically signed by: Charli Devries M.D. 08/07/2021 8:50 AM
[2021-08-07] MEDS ORDERED: IRBESARTAN 75 MG TAB PO SCH (09:00)
[2021-08-07] MEDS ORDERED: TORSEMIDE 20 MG TAB PO SCH (09:00)
[2021-08-07] MEDS: FUROSEMIDE 40 MG/4 ML VIAL IV SCH ×2 (11:30→19:33)
--- NOTE | 2021-08-07 12:20 | Billing Data ---
Date of Service August 07, 2021 Coding Level of Care Code 69589 Subseq Obs Care Lvl 3
[2021-08-07] MEDS ORDERED: LEVALBUTEROL HCL 0.63 MG/3 ML NEB NEB PRN (12:51)
[2021-08-07] MEDS ORDERED: IPRATROPIUM BROMIDE NEB SOLN 0.02% 2.5 ML VIAL INH PRN (12:51)
[2021-08-07] MEDS ORDERED: ACETAMINOPHEN 500 MG TAB PO PRN (14:36)
[2021-08-07] MEDS ORDERED: DIGOXIN 250 MCG in SYRINGE 9 ML IV ONE ×2 (15:15→21:00)
--- NOTE | 2021-08-07 19:19 | XCELERA ---
[id number]
[2021-08-07] MEDS ORDERED: METOPROLOL SUCC 25MG EXT REL TAB PO SCH (21:00)
[2021-08-08] MEDS ORDERED: DIGOXIN 125 MCG in SYRINGE 9.5 ML IV ONE (03:00)
--- NOTE | 2021-08-08 03:29 | Billing Data ---
Date of Service August 08, 2021 Coding Level of Care Code INT OBSERVATION CARE 70M LVL 3
--- NOTE | 2021-08-08 06:07 | Electrocardiogram Report ---
Test Reason : Blood Pressure : / mmHG Vent. Rate : 124 BPM Atrial Rate : 119 BPM P-R Int : 000 ms QRS Dur : 140 ms QT Int : 306 ms P-R-T Axes : 000 -78 073 degrees QTc Int : 439 ms Poor data quality, interpretation may be adversely affected Atrial fibrillation with rapid ventricular response with premature ventricular or aberrantly conducte d complexes Left axis deviation Right bundle branch block Possible Inferior infarct , age undetermined Abnormal ECG When compared with ECG of 31-AUG-2018 11:36, Nonspecific T wave abnormality no longer evident in Inferior leads Confirmed by Ja Sumner ([id number]) on 08/08/2021 6:07:25 AM Referred By: Del Choe Confirmed By:Ja Sumner
[2021-08-08] MEDS: LEVOTHYROXINE SODIUM 75 MCG TABLET PO SCH (06:27)
[2021-08-08] MEDS: METOPROLOL SUCC 25MG EXT REL TAB PO SCH (07:39)
[2021-08-08] MEDS: RIVAROXABAN 15 MG TAB PO SCH (07:40)
[2021-08-08] MEDS: PRAMIPEXOLE DIHYDROCHLO 0.5 MG TAB PO SCH (07:41)
[2021-08-08] MEDS: FUROSEMIDE 40 MG/4 ML VIAL IV SCH (07:41)
[2021-08-08] MEDS: ROSUVASTATIN CALCIUM 10 MG TAB PO SCH (07:41)
[2021-08-08 07:46] LABS: Basophils # (auto) 0.01 K/uL (0-0.2); Basophils % (auto) 0.1 %; Eosinophils # (auto) 0.11 K/uL (0-0.5); Eosinophils % (auto) 1.4 %; Hematocrit (blood only) 39.1 % (42-52); Hemoglobin 12.9 g/dL (14.0-18.0); Immature Granulocytes # (auto) 0.01 K/uL (0.00-0.02); Immature Granulocytes % (auto) 0.1 %; Lymphocytes % (auto) 14.3 %; Mean Corpuscular Hemoglobin 32.1 pg (25-34); Mean Corpuscular Volume 97.3 fL (80-100); Mean Platelet Volume 10.1 fL (7.4-10.4); Monocytes # (auto) 0.49 K/uL (0.11-0.59); Monocytes % (auto) 6.4 %; Neutrophils # (auto) 5.96 K/uL (1.4-6.5); Neutrophils % (auto) 77.7 %; Platelet Count 159 K/uL (130-400); RDW Coefficient of Variation 15.8 % (11.5-14.5); RDW Standard Deviation 56.7 fL (36.4-46.3); Red Blood Count 4.02 M/uL (4.7-6.1); White Blood Count 7.68 K/uL (4.8-10.8)
[2021-08-08 08:05] LABS: Albumin Globulin Ratio 1.2 (0.9-2); Albumin Level 3.7 gm/dl (3.4-5.0); BUN Creatinine Ratio 27.9 (10-20); Bilirubin,Total 0.7 mg/dl (0.2-1.0); Calcium 8.6 mg/dl (8.5-10.1); Creatinine Clr Calc Pharmacy 45.2 ml/min; Est GFR (African American) 48.3 ml/min; Est GFR (Non-African American) 41.7 ml/min; Globulin 3.2 gm/dl (2.5-4.0); Total Protein 6.9 gm/dl (6.0-8.3)
--- NOTE | 2021-08-08 08:21 | Hospitalist Progress Note ---
Date of Service August 08, 2021 Assessment & Plan (1) Fall: Plan: 89 y/o M w/ PMHx of HFrEF, permanent afib on Xarelto, RLS, hypothyroidism, HTN who presents from [facility] after a fall. #[place] CT w/o acute intracranial pathology. No LOC. No AMS. Neurovasc checks ordered. -ambulatory dysfunction: PT/OT evals. #Acute decompensated HFrEF Echo from 04/17/21 demonstrating EF of 25 to 30%, moderate dilation of the LV, severe global hypokinesis of left ventricle. On presentation patient demonstrating significant weeping 3+ pedal edema of the bilateral lower extremities. Presentation consistent with hypervolemia with associated weight gain. Patient admits to not being compliant with his torsemide only taking 1 pill/day versus 3.Home torsemide was held and Lasix IV 40 mg x1 provided on admission; Cr 1.41, on admit, appears near baseline. -Repeat Echo -Low Threshold for Cardiology consult -Trend BMP -CR:1.4->1.2 ->1.47 -Strict I/O and daily weights -Dry weight 265 lbs ~120 kg -125 -Net Negative 1.3 L -Diuresis as tolerated -Holding lasix secondary to elevated BUN and creatinine. -Elevated BUN to creatinine ratio suggests prerenal etiology unclear if hypoperfusion versus heart failure -Resumed torsemide 20 mg daily -Resume spironolactone 25 mg daily -Clarified outpatient medication regimen -Spironolactone 25 mg daily -Torsemide dosing based upon the weight -Under 260 pounds: none -260-265: 20 mg -265-270: 40 mg -Greater than 270: 80 mg #A. fib Likely contributing to acute decompensated heart failure. Was in RVR on admission with a rate of 130 improved status post 2 doses of Lopressor. Monitor on telemetry. -Continue home metoprolol succinate 50 mg every morning and 25 mg nightly. Despite beta-blockade patient continued to be persistently tachycardic to the 130s with soft blood pressures. Therefore the decision was made to digitalize the patient. -Started on digoxin 250 mcg, repeat 250 mcg 6 hours later, repeat 150 mcg 6 hours later, then 150 mcg at 4:00 daily -Digitalis levels 1.2 -tolerating medication without A/E -BP Improved -Anticoagulated with rivaroxaban #Leukocytosis (resolved) Mildly elevated to 14, UA not indicative of infection, chest x-ray without focal consolidation. Will monitor for progression of respiratory symptoms, low threshold for initiating antibiotic therapy to treat presumed COPD exacerbation. No signs of meningitis, no signs of urinary tract infection, no signs of GI infection, no signs of cellulitis. Bilateral lower extremity venous stasis, monitor for potential development of cellulitis. -Pro-Aldo negative -Continue to trend CBC -WBC:14.05->11.50->7.68 #COPD Extensive smoking history managed tobacco former pacemaker chronic cough. Leukocytosis was worsening respiratory status could be related to COPD exacerbation. If no significant improvement will initiate azithromycin. -continue Xopenex/ipratropium -Started on Spiriva #Tachypnea Multifactorial Likely secondary to the above. -resolved #Chronic sinusitis -BID Nasacort #SAULO CPAP nightly #Hypothyroidism Continue home levothyroxine #Hypertension Holding irbesartan in the setting of planned aggressive diuresis #Dyslipidemia Continue rosuvastatin FENa:Low Na. No maintenance fluids. Code Status:DNR/DNI DVT PPX:Continue xarelto PT/OT:consulted Case Management:consulted Dispo:tele Macario Lara MD PGY 3, FCM This chart was completed utilizing [employer] voice recognition software. Grammatical errors, random word insertions, pronoun errors, and in complete sentences are an occasional consequence of the system. Any questions or concerns about the content, text, or information contained within the body of this dictation should be addressed directly to the physician for clarification. (2) Tachypnea: (3) Chronic systolic congestive heart failure: (4) Permanent atrial fibrillation: (5) Leukocytosis: (6) Chronic sinusitis: (7) Anticoagulant long-term use: (8) Moderate obstructive sleep apnea: (9) Hypothyroidism: (10) HTN (hypertension): Plan: Continue home irbesartan (11) Dyslipidemia: Admission and Anticipated Discharge Date Admission Date: August 06, 2021 Results & Data Results & Data ([facility]) Vital Signs (Past 12 Hours) Vital Signs Temp Pulse Pulse Resp BP Pulse Ox Pulse Ox 08/08/21 08:00 95 H 96 08/08/21 02:55 36.8 C 92 H 18 109/72 96 08/08/21 02:33 114 H 08/08/21 00:10 124 H 18 94 08/07/21 23:21 36.7 C 93 H 18 118/69 93
[2021-08-08] MEDS ORDERED: DIGOXIN 0.125 MG TAB PO ONE (08:30)
[2021-08-08] MEDS ORDERED: TORSEMIDE 10 MG TAB PO SCH (09:00)
[2021-08-08] MEDS ORDERED: SPIRONOLACTONE 25 MG TAB PO SCH (09:00)
[2021-08-08] MEDS ORDERED: UMECLIDINIUM BROMIDE 62.5MCG/BLISTER 7 PUFFS/INHALER INH SCH (09:00)
--- NOTE | 2021-08-08 10:12 | XRay Report ---
XR chest 1V portable CLINICAL HISTORY: Difficulty breathing. Evaluate for congestive heart failure. COMPARISON STUDY: 08/07/2021 TECHNIQUE: 1 view of the chest FINDINGS: Single frontal view of the chest demonstrates the cardiomediastinal silhouette to be within normal li mits. The lungs are clear of alveolar opacities. There is no evidence for pleural effusion. There is no evidence for vascular congestion. There is no acute osseous pathology. IMPRESSION: No acute cardiopulmonary disease. There is again no significant interval change. ACT 112: Negative or not required by law. Electronically signed by: Charli Devries M.D. 08/08/2021 10:11 AM
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
[2021-08-08] MEDS: TRIAMCINOLONE ACET NASAL SPRAY 10.8ML BTL NAE SCH (14:10)
[2021-08-08] MEDS ORDERED: DIGOXIN 125 MCG in SYRINGE 9.5 ML IV SCH (16:00)
--- NOTE | 2021-08-08 17:10 | Billing Data ---
Date of Service August 08, 2021 Coding Level of Care Code 21423 OBS Care - Discharge
== END 2021-08-08 15:52 ==
LOC: EDINP 21:28 → ED 21:28 → SUATTDRO 23:59 → 2S 08-07 03:19